=== PATIENT | male | born 1990 | race Caucasian/White ===

== ENCOUNTER 2023-10-13 14:28 | Inpatient (IN) ==
[2023-10-13 15:06] LABS: Appearance Urine Clear (Clear); Bilirubin Urine Negative (Negative); Blood Urine Negative (Negative); Color Urine Yellow; Glucose Urine UA Negative (Negative); Ketones Urine Negative (Negative); Leukocyte Esterase Urine Negative (Negative); Nitrite Urine Negative (Negative); Protein Urine Negative (Negative); Specific Gravity Urine 1.009 (1.000-1.030); Urobilinogen Urine Negative (Negative)
[2023-10-13 15:11] LABS: Basophils # (auto) 0.03 K/uL (0.00-0.20); Basophils % (auto) 0.4 %; Eosinophils # (auto) 0.05 K/uL (0.00-0.50); Eosinophils % (auto) 0.7 %; Hematocrit (blood only) 41.9 % (42.0-52.0); Hemoglobin 14.2 g/dl (14.0-18.0); Immature Granulocytes # (auto) 0.02 K/uL (0.01-0.20); Immature Granulocytes % (auto) 0.3 %; Lymphocytes # (auto) 1.19 K/uL (1.20-3.40); Lymphocytes % (auto) 17.6 %; Mean Corpuscular Hemoglobin 27.8 pg (25.0-34.0); Mean Corpuscular Hgb Conc 33.9 g/dL (32.0-36.0); Mean Corpuscular Volume 82.2 fL (80.0-100.0); Mean Platelet Volume 9.9 fL (9.4-12.4); Monocytes # (auto) 0.36 K/uL (0.11-0.59); Monocytes % (auto) 5.3 %; Neutrophils # (auto) 5.12 K/uL (1.40-6.50); Neutrophils % (auto) 75.7 %; Platelet Count 209 K/uL (130-400); RDW Standard Deviation 35.9 fL (36.4-46.3); White Blood Count 6.77 K/ul (4.8-10.8)
--- NOTE | 2023-10-13 15:15 | Emergency Department Note ---
Impression & Plan Depression with suicidal ideation ADMIT ED Provider Note HPI: History obtained from patient. The patient is a 33-year-old gentleman with stated history of anxiety/depression, presents emergency department chief complaint of suicidal thoughts. 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 Patient states that he plans to stop hotel and overdose on medications but instead decided to come to the hospital to be evaluated for inpatient psychiatric care. Patient states that he did this once back in May and drove to [facility] and was admitted for inpatient psychiatric care at the [facility]. On arrival here to the ED the patient is calm and cooperative, he appears to be in no acute distress, he is able to give me a coherent history, he denies any recent alcohol or drug use. Patient states he is having active suicidal thoughts with a plan to overdose on medications. ROS: - Per HPI Differential Diagnosis: Anxiety/depression, suicidal thoughts, psychosis, amongst other potential pathologies. *Outpatient medications and allergy history reviewed. PE: General: Alert HEENT: Normocephalic, trachea midline Eyes: Extraocular eye movement is intact, no scleral erythema Pulmonary: Clear to auscultation bilaterally, no wheezing Cardio: Regular rate and rhythm GI: Abdomen is soft to palpation : No suprapubic tenderness MSK: No evidence of trauma or malformation of the extremities, no edema Skin: No evidence of rash Neuro: Alert, no focal deficits Psychiatric: Cooperative Medical Decision Making: Patient appears well on my assessment. Lab work shows no leukocytosis, hemoglobin is normal, platelet count is normal, CMP does not show any critical findings. Urine drug screen is negative, COVID testing is negative. Patient was medically cleared for case management assessment/psychiatric placement. Patient is currently voluntary under 201. Patient was assessed by 3 S. for inpatient psychiatric care and accepted for suicidal thoughts with a plan. Patient was transferred to the behavioral health unit in stable condition for further care. Consultants/Discussions held with other healthcare providers: -Case Management, Miley Melchor Disposition discussion held by myself with: -Patient Diagnosis: 1. Suicidal thoughts, acute, with plan 2. History of anxiety/depression Disposition: Admission Jim Lopez DO Emergency Medicine Past Med/Surg History Social History Smoking Status: Never smoker Preferred Language: Cymraes Feels Safe at Home: Yes Gender Identity: Male Allergies Allergies Allergy/AdvReac Type Severity Reaction Status Date / Time peanut Allergy Anaphylaxis Verified 10/13/23 16:08 tree nut Allergy Hives Verified 10/13/23 16:09 Home Meds Home Medications Medication Instructions Recorded Confirmed aripiprazole 5 mg tablet (Abilify) 5 mg PO HS 10/13/23 10/13/23 escitalopram oxalate 10 mg tablet 10 mg PO QPM 10/13/23 10/13/23 (Lexapro) guanfacine 1 mg tablet 1 mg PO HS 10/13/23 10/13/23 Results & Data (ED) Vital Signs Vital Signs - 24 hr 10/13/23 14:35 10/13/23 17:00 10/13/23 19:00 Temperature 37.0 C 36.3 C L Temperature Source Temporal Artery Scan Oral Pulse Rate 103 H Pulse Rate [Left Finger] 88 77 Pulse Rhythm [Left Finger] Regular Pulse Strength [Left Finger] Normal Respiratory Rate 19 20 19 Respiratory Effort / Characteristics Non-Labored Spontaneous Non-Labored Spontaneous Non-Labored Respiratory Depth Normal Normal Normal Respiratory Pattern Regular Regular Blood Pressure 144/90 H Blood Pressure [Left Arm] 137/72 146/85 H Blood Pressure Mean 108 Blood Pressure Mean [Left Arm] 93 105 Pulse Oximetry 97 98 98 Oxygen Delivery Method Room Air Room Air Sepsis Recent Fever Within 48 Hours No Sepsis New/Unexplained Change in Mental Status No Sepsis Action Taken by Nursing No Action Required 10/13/23 21:00 Temperature 36.3 C L Temperature Source Oral Pulse Rate Pulse Rate [Left Finger] 72 Pulse Rhythm [Left Finger] Pulse Strength [Left Finger] Respiratory Rate 18 Respiratory Effort / Characteristics Non-Labored Respiratory Depth Normal Respiratory Pattern Regular Blood Pressure Blood Pressure [Left Arm] 147/86 H Blood Pressure Mean Blood Pressure Mean [Left Arm] 106 Pulse Oximetry 98 Oxygen Delivery Method Room Air Sepsis Recent Fever Within 48 Hours Sepsis New/Unexplained Change in Mental Status Sepsis Action Taken by Nursing Laboratory Data 10/13/23 14:52 10/13/23 14:52 Lab Results 10/13/23 10/13/23 10/13/23 Range/Units 14:52 14:55 19:25 WBC 6.77 (4.8-10.8) K/ul RBC 5.10 (4.70-6.10) M/uL Hgb 14.2 (14.0-18.0) g/dl Hct 41.9 L (42.0-52.0) % MCV 82.2 (80.0-100.0) fL MCH 27.8 (25.0-34.0) pg MCHC 33.9 (32.0-36.0) g/dL RDW Std Deviation 35.9 L (36.4-46.3) fL RDW Coeff of Kylee 12.0 (11.5-14.5) % Plt Count 209 (130-400) K/uL MPV 9.9 (9.4-12.4) fL Immature Gran % (Auto) 0.3 % Neut % (Auto) 75.7 % Lymph % (Auto) 17.6 % Motley % (Auto) 5.3 % Eos % (Auto) 0.7 % Baso % (Auto) 0.4 % Neut # (Auto) 5.12 (1.40-6.50) K/uL Lymph # (Auto) 1.19 L (1.20-3.40) K/uL Motley # (Auto) 0.36 (0.11-0.59) K/uL Eos # (Auto) 0.05 (0.00-0.50) K/uL Baso # (Auto) 0.03 (0.00-0.20) K/uL Immature Gran # (Auto) 0.02 (0.01-0.20) K/uL Sodium 141 (136-145) mmol/L Potassium 3.7 (3.5-5.1) mmol/L Chloride 106 (98-107) mmol/L Carbon Dioxide 27 (21-32) mmol/L Anion Gap 8 (3-11) BUN 12 (6-23) mg/dl Creatinine 0.87 (0.6-1.4) mg/dl Est Cr Clr Drug Dosing 131.1 ml/min Est GFR ( Amer) 131.4 ml/min Est GFR (Non-Af Amer) 113.4 ml/min BUN/Creatinine Ratio 13.8 (10-20) Glucose 130 H (70-99(Fasting)) mg/dl Calcium 9.6 (8.6-10.3) mg/dl Total Bilirubin 0.8 (0.2-1.0) mg/dl AST 24 (13-39) U/L ALT 37 (7-52) U/L Alkaline Phosphatase 70 (34-104) U/L Total Protein 7.2 (6.0-8.3) gm/dl Albumin 4.6 (3.4-5.0) gm/dl Globulin 2.6 (2.5-4.0) gm/dl Albumin/Globulin Ratio 1.8 (0.9-2) TSH 1.669 (0.300-4.500) uIu/ml Urine Color Yellow Urine Appearance Clear (Clear) Urine pH 6.0 (4.5-7.5) Ur Specific [place] 1.009 (1.000-1.030) Urine Protein Negative (Negative) Urine Glucose (UA) Negative (Negative) Urine Ketones Negative (Negative) Urine Blood Negative (Negative) Urine Nitrite Negative (Negative) Urine Bilirubin Negative (Negative) Urine Urobilinogen Negative (Negative) Ur Leukocyte Esterase Negative (Negative) Salicylates < 3.0 L (3.0-30) mg/dl Urine Opiates Screen Neg (Neg) Ur Methadone, Qual Neg (Neg) Acetaminophen < 3 L (10-30) ug/ml Urine Barbiturates Neg (Neg) Ur Phencyclidine (PCP) Neg (Neg) U Amphetamin/Meth Scrn Neg (Neg) MDMA (Ecstasy) Screen Neg (Neg) U Benzodiazepines Scrn Neg (Neg) Ur Cocaine Metabolite Neg (Neg) U Marijuana (THC) Screen Neg (Neg) Ethyl Alcohol mg/dL < 10.0 (<10.0) mg/dl SARS-CoV-2, RNA, NAAT NEGATIVE (NEGATIVE) Discharge Plan Visit Data Chief Complaint: Mental Health Evaluation Stated Complaint: [facility] ED Provider: Jim Lopez Discharge Problem: Depression with suicidal ideation Patient Disposition: Admitted As Inpatient Prescriptions Prescriptions: No Action guanfacine 1 mg Tablet 1 mg PO HS escitalopram oxalate [Lexapro] 10 mg Tablet 10 mg PO QPM aripiprazole [Abilify] 5 mg Tablet 5 mg PO HS
[2023-10-13 15:42] LABS: Albumin Level 4.6 gm/dl (3.4-5.0); Bilirubin,Total 0.8 mg/dl (0.2-1.0); Calcium 9.6 mg/dl (8.6-10.3); Potassium 3.7 mmol/L (3.5-5.1)
[2023-10-13 15:45] LABS: Acetaminophen < 3 ug/ml (10-30); Salicylate < 3.0 mg/dl (3.0-30)
[2023-10-13 15:48] LABS: Albumin Globulin Ratio 1.8 (0.9-2); BUN Creatinine Ratio 13.8 (10-20); Creatinine Clr Calc Pharmacy 131.1 ml/min; Est GFR (African American) 131.4 ml/min; Est GFR (Non-African American) 113.4 ml/min; Globulin 2.6 gm/dl (2.5-4.0); Total Protein 7.2 gm/dl (6.0-8.3)
[2023-10-13 15:49] LABS: Thyroid Stimulating Hormone 1.669 uIu/ml (0.300-4.500)
[2023-10-13 16:01] LABS: Amphetamines+Metham, Urine Neg (Neg); Barbiturates, Urine Neg (Neg); Benzodiazepine, Urine Neg (Neg); Cocaine, Urine Neg (Neg); MDMA (Ecstacy), Urine Neg (Neg); Marijuana, Urine Neg (Neg); Methadone, Urine Neg (Neg); Opiate, Urine Neg (Neg); Phencyclidine, Urine Neg (Neg)
[2023-10-13] MEDS ORDERED: ALUMINUM/MAGNESIUM SUSP 30 ML UDC PO PRN (21:31)
[2023-10-13] MEDS ORDERED: MAGNESIUM HYDROXIDE SUSP 30 ML UDC PO PRN (21:31)
[2023-10-13] MEDS ORDERED: ACETAMINOPHEN 325 MG TAB PO PRN (21:31)
[2023-10-13] MEDS ORDERED: BISMUTH SUBSALICYLATE LIQD 236 ML PO PRN (21:31)
[2023-10-13] MEDS ORDERED: hydrOXYzine HCl 25 MG TAB PO PRN ×2 (21:31)
[2023-10-13] MEDS ORDERED: SODIUM CHLORIDE 0.65% NA SOLN 45 ML (OCEAN) PRN (21:31)
[2023-10-13] MEDS: ARIPiprazole 5 MG TAB PO SCH (22:28)
[2023-10-13] MEDS: guanFACINE HCL 1 MG TAB PO SCH (22:28)
[2023-10-13] MEDS: ESCITALOPRAM OXALATE 10 MG TAB PO SCH (22:29)
[2023-10-14] MEDS: DULoxetine HCL 30 MG CAP PO SCH (10:02)
--- NOTE | 2023-10-14 11:40 | Psychiatric Consultation ---
Date of Consultation October 14, 2023 Psych History Identifying Data Chris is a 33-year-old single male from [place]. He was admitted to our unit via the emergency room on October 12. He had left home to start a new job but had a plan to go to a hotel and overdose on all of his medications to end his life. He got on the road and just drove for several hours and eventually ended up in our emergency room for help. Chief Complaint "I left home with the intention to kill myself." History of Present Illness Today I met with the patient, received nursing report, and reviewed the chart. We also had a multidisciplinary treatment team meeting to discuss his care. Chris lives in [place] with his parents in a house. 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 However, he started to have worsening anxiety and fear as well as paranoia connected to this. He has a history of chronic suicidal ideation but it became much worse. He tells me that he feels like he has had too many failures. 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 He often will have internal dialogue such as saying things like "you cannot do that" or "you are too broken." He is also had much worsening hopelessness lately. He does not want to be a disappointment to others. However, his parents were worried about him starting this new job too soon. He denies any particular triggers that led to him wanting to end his life. His plan was to leave the house and, instead of going to the new job, driving, and checking himself into a hotel, and overdosing on all of his medications. He even left his cell phone at home so he could not be traced. He says that he had been prescribed multiple antihypertensive medications by his outpatient PCP and had been hoarding them. He cannot really identify any major stressors going on other than the new job. He is not in a relationship. He has no children. He has no legal issues. He has no major medical issues. He attends a advent, but he is not really involved in any other organized activities. He is close with his mother and can open up to her about some of his problems, but he tries not to upset her because she is pretty anxious. Recently had transition from fluoxetine to escitalopram about 1-1/2 months ago, but he does not feel that it really helped. Sleep is poor with occasional initial insomnia due to his anxiety. No nightmares. Appetites been "fine." He describes his mood as anxious and fearful. He has anhedonia. Energy has been poor. Concentration has been a bit better since he started [employer]. He says he can read better now. He does have guilt and hopelessness. He denies homicidal thoughts. He admits to having suicidal ideation. Yesterday it was at 9 out of 10, where 10 is the worst it could ever be. This morning he says his suicidal thoughts are at 6 out of 10. He denies any self-harm. He has a history of a severe suicide attempt about 14 years ago when he was a freshman in college when he overdosed on Benadryl. He denies any history of trauma or abuse. He is occasionally hearing his name called and often will feel that people are talking about him. When asked about hallucinations he was somewhat vague and it sounds more like he is having obsessive thoughts than auditory hallucinations. He denies any visual hallucinations. He often will do things like, song or repeat things in his head to try to distract himself. He denies ideas of reference. He denies thought insertion or thought removal but sometimes he wonders if people can hear what he is thinking although he quickly can correct himself and tell himself that it is "irrational" to feel that way. He denies any substance use although he has a history of heavy alcohol use about 9 years ago where he would binge. When asked about a history of izabela he describes what might be hypomanic episodes where he will have increased energy, racing thoughts, can get a lot done, can sometimes get a little bit disinhibited, and have surges of self- confidence. These episodes could last up to a week but not usually that long. He has never been hospitalized for izabela. Past Psychiatric History Previous Psych History: He says that he is diagnosed with depression and anxiety. Current Psychiatric Diagnosis: Depression, Anxiety, reports possible bipolar and schizoaffective Outpatient Services: He gets all of his outpatient services through [facility] in [place]. He does zoom meetings with his psychiatrist, Vianey Vazquez. He has a therapist, CUATE Perez. Previous Psych Admissions: Patient has had 3 prior psychiatric hospitalizations. He was at [facility] in May 2023. He was at [facility] in April 2022. He was at a hospital called [facility] in [place], [place] in 2009. History of Previous Suicide Attempt: Yes Past Medication Trials: An approximate chronological order, he has been on Paxil, lamotrigine, Zyprexa, Celexa, Vyvanse, Adderall, Prozac, Abilify, Lexapro, gabapentin, Ativan, and propranolol. Allergies Allergy/AdvReac Type Severity Reaction Status Date / Time peanut Allergy Anaphylaxis Verified 10/13/23 16:08 tree nut Allergy Hives Verified 10/13/23 16:09 Home Medications Medication Instructions Recorded Confirmed Type aripiprazole 5 mg tablet (Abilify) 5 mg PO HS 10/13/23 10/13/23 History epinephrine 0.3 mg/0.3 mL 10/13/23 History injection, auto-injector escitalopram oxalate 10 mg tablet 10 mg PO QPM 10/13/23 10/13/23 History (Lexapro) guanfacine 1 mg tablet 1 mg PO HS 10/13/23 10/13/23 History Patient History Social History Smoking Status: Never smoker Preferred Language: Slovenian Communication Ability: Effective Backwinder Required: No Beliefs That Will Affect Care: None Feels Safe at Home: Yes Gender Identity: Male Assistive Devices: None Physical Exam Vital Signs (Past 24 Hours): Last Vital Signs Temp 36.3 C L 10/14/23 06:26 Pulse 78 10/14/23 06:26 Resp 18 10/14/23 06:26 BP 119/81 10/14/23 06:26 Pulse Ox 98 10/14/23 06:26 O2 Del Method Room Air 10/14/23 06:26 Results & Data (PSY) Medications Administered Aripiprazole (Aripiprazole 5 Mg Tab) 5 mg PO HS SHERLEY Stop: 11/12/23 22:14 Last Admin: 10/13/23 22:28 Dose: 5 mg Documented By: PHONG Duloxetine HCl (Duloxetine Hcl 30 Mg Cap) 30 mg PO QAM SHERLEY Stop: 11/13/23 09:14 Last Admin: 10/14/23 10:02 Dose: 30 mg Documented By: MAYANK Coding
--- NOTE | 2023-10-14 12:01 | History & Physical ---
Date of Service October 14, 2023 Impression / Recommendations Impression This is a gentleman that had a long history of problems with depression and anxiety going back at least since he was a teenager. He also has a strong family history of depression and anxiety, and possible bipolar disorder. He has had a lot of difficulty with coping and functioning. He had to quit his job and so he is very down on himself about that. He feels an adequate around other people and sometimes will get to the point of paranoia thinking that people are talking about him. With this new job supposed to start yesterday, he hit a breaking point and became acutely suicidal. He had a distinct well thought out plan of ending his life. We know this because he took his medications with him when he was going to work as well as leaving his cell phone at home on purpose. He is also had difficulty functioning independently and has to live with his parents and I think that brings him down as well. He also does not have much of a social support system other than his parents. I think this gentleman is an acute danger of suicide and I am very glad that he came in for help. Today I spent about 85 minutes on the case. This included meeting with the patient, reviewing the chart, nursing report, multidisciplinary treatment team meeting, orders, and documentation. (1) Major depressive disorder, recurrent severe without psychotic features: (2) Bipolar 2 disorder, major depressive episode: (3) Generalized anxiety disorder: (4) Alcohol use disorder in remission: Plan 1. Patient was admitted to our unit for safety, further evaluation, and t reatment. We have him on suicide precautions with every 15 minute observations for safety. 2. I encouraged the patient to take part in our therapeutic milieu, attend groups and activities, maintain good hygiene, and try not to isolate. 3. We are going to continue his Intuniv 1 mg nightly as well as his Abilify 5 mg nightly. We might consider raising the Abilify to help with paranoia if that continues to persist. 4. We are going to discontinue the Lexapro and start him on duloxetine 30 mg daily with a plan to get to 60 mg daily over the next few days. I reviewed the uses, side effects, and time course of this medication and he gave informed consent. 5. I reached out to his physicians medical assistant ob gyn at [facility] and I am awaiting a phone call back to discuss the case. I do have some concerns that he may have bipolar disorder type II in which case we might want to adjust medications although Abilify is a reasonable treatment. 6. The administrator social welfare will try to set up a family meeting in the next few days and also arrange for transportation home. Right now, I do not feel comfortable having him drive himself back to [place]. 7. Disposition will likely be back home with outpatient medication management and counseling to continue. He also might be a good candidate for intensive outpatient treatment. We will hold off on work for now. Suicide Risk Level Suicide Risk Level: High-Moderate (q15 min suicide checks) Protective Factors Assessment Employed: No Psychiatric History Identifying Data Chris is a 33-year-old single male from [place]. He was admitted to our unit via the emergency room on October 12. He had left home to start a new job but had a plan to go to a hotel and overdose on all of his medications to end his life. He got on the road and just drove for several hours and eventually ended up in our emergency room for help. Chief Complaint "I left home with the intention to kill myself." History of Present Illness Today I met with the patient, received nursing report, and reviewed the chart. We also had a multidisciplinary treatment team meeting to discuss his care. Chris lives in [place] with his parents in a house. 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 However, he started to have worsening anxiety and fear as well as paranoia connected to this. He has a history of chronic suicidal ideation but it became much worse. He tells me that he feels like he has had too many failures. 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 He often will have internal dialogue such as saying things like "you cannot do that" or "you are too broken." He is also had much worsening hopelessness lately. He does not want to be a disappointment to others. However, his parents were worried about him starting this new job too soon. He denies any particular triggers that led to him wanting to end his life. His plan was to leave the house and, instead of going to the new job, driving, and checking himself into a hotel, and overdosing on all of his medications. He even left his cell phone at home so he could not be traced. He says that he had been prescribed multiple antihypertensive medications by his outpatient PCP and had been hoarding them. He cannot really identify any major stressors going on other than the new job. He is not in a relationship. He has no children. He has no legal issues. He has no major medical issues. He attends a [employer], but he is not really involved in any other organized activities. He is close with his mother and can open up to her about some of his problems, but he tries not to upset her because she is pretty anxious. Recently had transition from fluoxetine to escitalopram about 1-1/2 months ago, but he does not feel that it really helped. Sleep is poor with occasional initial insomnia due to his anxiety. No nightmares. Appetites been "fine." He describes his mood as anxious and fearful. He has anhedonia. Energy has been poor. Concentration has been a bit better since he started Intuniv. He says he can read better now. He does have guilt and hopelessness. He denies homicidal thoughts. He admits to having suicidal ideation. Yesterday it was at 9 out of 10, where 10 is the worst it could ever be. This morning he says his suicidal thoughts are at 6 out of 10. He denies any self-harm. He has a history of a severe suicide attempt about 14 years ago when he was a freshman in college when he overdosed on Benadryl. He denies any history of trauma or abuse. He is occasionally hearing his name called and often will feel that people are talking about him. When asked about hallucinations he was somewhat vague and it sounds more like he is having obsessive thoughts than auditory hallucinations. He denies any visual hallucinations. He often will do things like, song or repeat things in his head to try to distract himself. He denies ideas of reference. He denies thought insertion or thought removal but sometimes he wonders if people can hear what he is thinking although he quickly can correct himself and tell himself that it is "irrational" to feel that way. He denies any substance use although he has a history of heavy alcohol use about 9 years ago where he would binge. When asked about a history of izabela he describes what might be hypomanic episodes where he will have increased energy, racing thoughts, can get a lot done, can sometimes get a little bit disinhibited, and have surges of self- confidence. These episodes could last up to a week but not usually that long. He has never been hospitalized for izabela. Past Psychiatric History Previous Psych History: He says that he is diagnosed with depression and anxiety. Current Psychiatric Diagnosis: Depression, Anxiety, reports possible bipolar and schizoaffective Outpatient Services: He gets all of his outpatient services through [facility] in [place]. He does zoom meetings with his psychiatric PA, Vianey Vazquez, for med management. He has a therapist, CUATE Perez. Previous Psych Admissions: In approximate chronological order, he has been on Paxil, lamotrigine, Zyprexa, Celexa, Vyvanse, Adderall, Prozac, Abilify, Lexapro, gabapentin, Ativan, and propranolol. History of Previous Suicide Attempt: Yes Past Medication Trials: Past medical history: Patient has a history of eczema. He denies any other chronic illnesses. He was hospitalized medically once after a severe overdose about 14 years ago. 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 No history of any seizures. No history of head trauma with loss of consciousness. Past Head Trauma/Neuro History Patient has a history of eczema. He has no other chronic medical issues. He was hospitalized medically once about 14 years ago after an overdose of Benadryl. He has had surgery for correction of undescended testes. No history of seizures. No head trauma with loss of consciousness. Allergies Allergy/AdvReac Type Severity Reaction Status Date / Time peanut Allergy Anaphylaxis Verified 10/13/23 16:08 tree nut Allergy Hives Verified 10/13/23 16:09 Home Medications Medication Instructions Recorded Confirmed Type aripiprazole 5 mg tablet (Abilify) 5 mg PO HS 10/13/23 10/13/23 History epinephrine 0.3 mg/0.3 mL 10/13/23 History injection, auto-injector escitalopram oxalate 10 mg tablet 10 mg PO QPM 10/13/23 10/13/23 History (Lexapro) guanfacine 1 mg tablet 1 mg PO HS 10/13/23 10/13/23 History Family History Family History of: Doesn't Know Family Mental Health History Comment: Paternal grandmother has a history of depression and likely bipolar disorder. Nobody in the family is ever ended their life by suicide. Mother has a history of anxiety. Maternal grandfather has a history of alcoholism. There is a lot of alcoholism on the paternal side of the family. Paternal aunt may have had undiagnosed bipolar disorder. Alcohol History Hx of Alcohol Use Over the Past 12 Months: No (Quit drinking 10 years ago.) AUDIT Total Score: 0 Smoking Use Have You Smoked or Used Tobacco Products in the Last 30 Days: No Smoking Status: Never smoker Substance History Hx of Prescription Med Misuse Over the Past 12 Months: No Hx of Over the Counter Med Misuse Over the Past 12 Months: No Hx of Inhalent Misuse Over the Past 12 Months: No Hx of Organic Substance Use Over the Past 12 Months: No Hx of Illegal Substances/Street Drug Use Over Past 12 Months: No Problems as a Result of Past Substance Use: None Identified Personal History Living Arrangements: Home Beliefs That Will Affect Care: None Additional Comments: The patient lives in [place] in a house with his parents. He has a bachelor's in physics. He has an associates in nursing and is currently working as an RN. He has never been in the . He is never been and has no children. His father works as a psychologist. Mother is a retired machinist first class. Patient is not in a relationship. He has no legal issues. Patient History Social History Smoking Status: Never smoker Preferred Language: Thai Communication Ability: Effective Drum Cleaner Required: No Beliefs That Will Affect Care: None Feels Safe at Home: Yes Gender Identity: Male Assistive Devices: None Review of Systems Review of Systems: Patient denied any cold or flu. No headache or fever. No problems with eyes, ears, nose, teeth, or swallowing. No pain or swelling in their neck. No wheezing, coughing, or shortness of breath. No chest pain, racing heartbeat, or irregular heart rate. No diarrhea, upset stomach, or constipation. No dysuria, problems emptying their bladder, initiating a urine stream, or hematuria. No skin lesions. No concerns about an STD. No muscle weakness, numbness, tingling, or tremors. No broken bones. No problems with their joints. No problems with their feet. No bleeding problems. Physical Exam Psychiatric: Patient was alert and oriented x 3. He was clean but slightly disheveled. Eye contact was good. Speech was normal. Mood was described as "anxious and fearful." Affect was somewhat restricted. Thought process was logical and goal-directed. There was no evidence of any hallucinations or delusions. Patient reported suicidal ideation with a plan as I described above. He denied any homicidal thoughts. Memory was good; he knew his date of , the president of [facility], and the capital of [place]. Concentration was good; he could spell the word world backwards easily. No abnormal movements were seen. Gait was normal. Insight and judgment are impaired. Vital Signs (Past 24 Hours): Last Vital Signs Temp 36.3 C L 10/14/23 06:26 Pulse 78 10/14/23 06:26 Resp 18 10/14/23 06:26 BP 119/81 10/14/23 06:26 Pulse Ox 98 10/14/23 06:26 O2 Del Method Room Air 10/14/23 06:26 Exam Statement: A physical exam was performed in the emergency department yesterday afternoon by Dr. Jim Lopez. Everything in the physical exam notes were completely normal. Results & Data ([facility]) Laboratory Results Laboratory Results - last 24 hr 10/13/23 10/13/23 10/13/23 14:52 14:55 19:25 WBC 6.77 RBC 5.10 Hgb 14.2 Hct 41.9 L MCV 82.2 MCH 27.8 MCHC 33.9 RDW Std Deviation 35.9 L RDW Coeff of Kylee 12.0 Plt Count 209 MPV 9.9 Immature Gran % (Auto) 0.3 Neut % (Auto) 75.7 Lymph % (Auto) 17.6 Bennett % (Auto) 5.3 Eos % (Auto) 0.7 Baso % (Auto) 0.4 Neut # (Auto) 5.12 Lymph # (Auto) 1.19 L Bennett # (Auto) 0.36 Eos # (Auto) 0.05 Baso # (Auto) 0.03 Immature Gran # (Auto) 0.02 Sodium 141 Potassium 3.7 Chloride 106 Carbon Dioxide 27 Anion Gap 8 BUN 12 Creatinine 0.87 Est Cr Clr Drug Dosing 131.1 Est GFR ( Amer) 131.4 Est GFR (Non-Af Amer) 113.4 BUN/Creatinine Ratio 13.8 Glucose 130 H Calcium 9.6 Total Bilirubin 0.8 AST 24 ALT 37 Alkaline Phosphatase 70 Total Protein 7.2 Albumin 4.6 Globulin 2.6 Albumin/Globulin Ratio 1.8 TSH 1.669 Urine Color Yellow Urine Appearance Clear Urine pH 6.0 Ur Specific [place] 1.009 Urine Protein Negative Urine Glucose (UA) Negative Urine Ketones Negative Urine Blood Negative Urine Nitrite Negative Urine Bilirubin Negative Urine Urobilinogen Negative Ur Leukocyte Esterase Negative Salicylates < 3.0 L Urine Opiates Screen Neg Ur Methadone, Qual Neg Acetaminophen < 3 L Urine Barbiturates Neg Ur Phencyclidine (PCP) Neg U Amphetamin/Meth Scrn Neg MDMA (Ecstasy) Screen Neg U Benzodiazepines Scrn Neg Ur Cocaine Metabolite Neg U Marijuana (THC) Screen Neg Ethyl Alcohol mg/dL < 10.0 SARS-CoV-2, RNA, NAAT NEGATIVE Current Inpatient Medications Current Inpatient Medications: Current Inpatient Medications Acetaminophen (Acetaminophen 325 Mg Tab) 650 mg PO Q4H PRN PRN Reason: Headache or Minor Fever Stop: 11/12/23 21:30 Al Hydrox/Mg Hydrox/Simethicone (Aluminum/Magnesium Susp 30 Ml Udc) 30 ml PO Q4H PRN PRN Reason: GI Upset Stop: 11/12/23 21:30 Aripiprazole (Aripiprazole 5 Mg Tab) 5 mg PO HS SHERLEY Stop: 11/12/23 22:14 Last Admin: 10/13/23 22:28 Dose: 5 mg Bismuth Subsalicylate (Bismuth Subsalicylate Liqd 236 Ml) 15 ml PO PRN PRN PRN Reason: Loose Stool Stop: 11/12/23 21:30 Duloxetine HCl (Duloxetine Hcl 30 Mg Cap) 30 mg PO QAM SHERLEY Stop: 11/13/23 09:14 Last Admin: 10/14/23 10:02 Dose: 30 mg Guanfacine HCl (Guanfacine Hcl 1 Mg Ertab) 1 mg PO HS SHERLEY Stop: 11/13/23 21:59 Hydroxyzine HCl (Hydroxyzine Hcl 25 Mg Tab) 50 mg PO HSZ PRN PRN Reason: Insomnia Stop: 11/12/23 21:30 Hydroxyzine HCl (Hydroxyzine Hcl 25 Mg Tab) 25 mg PO Q4H PRN PRN Reason: Anxiety Stop: 11/12/23 21:30 Magnesium Hydroxide (Magnesium Hydroxide Susp 30 Ml Udc) 30 ml PO DAILY PRN PRN Reason: Constipation Stop: 11/12/23 21:30 Sodium Chloride (Sodium Chloride 0.65% Na Soln 45 Ml (Citrus)) 1 - 2 sprays NA PRN PRN PRN Reason: Nasal Dryness/Congestion Stop: 11/12/23 21:30
--- NOTE | 2023-10-14 14:21 | Communication Note ---
Date of Service: October 14, 2023 I spoke with the physicians dietetic assistant that works with this patient for his psychiatric medication management at 2:20 PM. I relayed my concerns about poss ible bipolar disorder type II versus major depression. We both agree that this could be bipolar type II. We also both agree that he has generalized anxiety disorder. I discussed the medication adjustments we made and talked about possibly adding some Seroquel later on. She was in support of everything that we discussed and understands that we may or may not start Seroquel before he leaves the hospital. We will send a copy of the discharge summary and psychiatric evaluation at discharge.
[2023-10-14] MEDS ORDERED: ONDANSETRON 4 MG OD TAB PO PRN (14:58)
--- NOTE | 2023-10-15 15:21 | Psychiatric Progress Note ---
Date of Service October 15, 2023 Impression / Recommendations Impression 10/14/2023: This is a gentleman that had a long history of problems with depression and anxiety going back at least since he was a teenager. He also has a strong family history of depression and anxiety, and possible bipolar disorder. He has had a lot of difficulty with coping and functioning. He had to quit his job and so he is very down on himself about that. He feels an adequate around other people and sometimes will get to the point of paranoia thinking that people are talking about him. With this new job supposed to start yesterday, he hit a breaking point and became acutely suicidal. He had a dist inct well thought out plan of ending his life. We know this because he took his medications with him when he was going to work as well as leaving his cell phone at home on purpose. He is also had difficulty functioning independently and has to live with his parents and I think that brings him down as well. He also does not have much of a social support system other than his parents. I think this gentleman is an acute danger of suicide and I am very glad that he came in for help. 10/15/2023: Patient is settled in well on the unit and is working hard to get better. He seems to be tolerating his medication adjustments. We are observing some of his anxious habits which are congruent with what he told us. I think he is still in acute danger to himself and others and still requires inpatient psychiatric hospitalization. Today I spent about 39 minutes on the case. This included meeting with the patient, reviewing the chart, nursing report, multidisciplinary team meeting, orders, and documentation. (1) Bipolar 2 disorder, major depressive episode: (2) Generalized anxiety disorder: (3) Alcohol use disorder in remission: Plan 1. Patient was admitted to our unit for safety, further evaluation, and treatment. We have him on suicide precautions with every 15 minute observations for safety. 2. I encouraged the patient to take part in our therapeutic milieu, attend groups and activities, maintain good hygiene, and try not to isolate. 3. We are going to continue his Intuniv 1 mg nightly as well as his Abilify 5 mg nightly. We might consider raising the Abilify to help with paranoia if that continues to persist. 4. We are going to discontinue the Lexapro and start him on duloxetine 30 mg daily with a plan to get to 60 mg daily over the next few days. I reviewed the uses, side effects, and time course of this medication and he gave informed consent. 5. I reached out to his physicians assistant auditor at [facility] and I am awaiting a phone call back to discuss the case. I do have some concerns that he may have bipolar disorder type II in which case we might want to adjust medications although Abilify is a reasonable treatment. 6. The case management social worker will try to set up a family meeting in the next few days and also arrange for transportation home. Right now, I do not feel comfortable having him drive himself back to [place]. 7. Disposition will likely be back home with outpatient medication management and counseling to continue. He also might be a good candidate for intensive outpatient treatment. We will hold off on work for now. 10/15/2023: We will continue with our current level of observations and precautions. Today, we decided together to discontinue the Abilify and start some Seroquel and try to titrate towards 300 mg at bedtime. Tonight we will started at 100 mg. Hopefully, this will help with what we think is bipolar disorder type II. I also ordered a fasting lipid profile baseline. I reviewed the uses, side effects, and time course and he gave informed consent. I asked him to continue to participate in the therapeutic milieu and help distract himself. Suicide Risk Level Suicide Risk Level: High-Moderate (q15 min suicide checks) Risk Factors Assessment Do You Have Access To A Gun?: No Protective Factors Assessment Employed: No Interval History Identifying Information Chris is a 33-year-old single male from [place]. He was admitted to our unit via the emergency room on October 12. He had left home to start a new job but had a plan to go to a hotel and overdose on all of his medications to end his life. He got on the road and just drove for several hours and eventually ended up in our emergency room for help. Chief Complaint "I left home with the intention to kill myself." Review of Systems Sleep Information Total Hours of Sleep: 7 Meal Information Percent Meal Consumed - Breakfast: 100 Percent Meal Consumed - Lunch: 100 Percent Meal Consumed - Dinner: 100 Subjective Subjective Today I met with the patient, received nursing report, and reviewed his chart. We also had a multidisciplinary team meeting to discuss his care. Chris is in our hospital due to concerns of suicidal ideation and severe anxiety. Nurses report that he has been out of his room. He is not having any nausea associated with the new Cymbalta. He has not had a lot of spontaneous interaction with his peers and sometimes looks a bit suspicious. However, he has been appropriate. He is going to groups and participating there. He described his mood to the staff is 6 out of 10 and feels "hopeful." He has been walking and reading to help pass the time. He slept through the night. When I met with him today, he said that he spoke with his parents and they were very concerned about him and worried. He felt like he had overwhelmed to them because his mother has her own anxiety issues. He says that they tend to feed off of each other. Lately, he says he is not feeling that depressed. He has been reading a book to help pass the time. He denied any nausea with me. We discussed the conversation I had with his outpatient psychiatric provider yesterday. Physical Exam Psychiatric Patient was alert and cooperative. Eye contact was good. He was clean and well-groomed. Speech was normal. Mood was described as "anxious." Affect was still somewhat restricted and slightly anxious. Thought process was logical and goal-directed. There was no evidence of any hallucinations or delusions. Patient reported milder suicidal ideation and no homicidal thoughts. Memory and concentration were good. No abnormal movements were seen. Gait was normal. Insight and judgment are impaired. Vital Signs (Past 24 Hours) Last Vital Signs Temp 36.5 C 10/15/23 06:34 Pulse 88 10/15/23 06:34 Resp 18 10/15/23 06:34 BP 119/81 10/14/23 06:26 Pulse Ox 96 10/15/23 06:34 O2 Del Method Room Air 10/15/23 06:34 Results & Data ([facility]) Current Inpatient Medications Current Inpatient Medications: Current Inpatient Medications Acetaminophen (Acetaminophen 325 Mg Tab) 650 mg PO Q4H PRN PRN Reason: Headache or Minor Fever Stop: 11/12/23 21:30 Al Hydrox/Mg Hydrox/Simethicone (Aluminum/Magnesium Susp 30 Ml Udc) 30 ml PO Q4H PRN PRN Reason: GI Upset Stop: 11/12/23 21:30 Bismuth Subsalicylate (Bismuth Subsalicylate Liqd 236 Ml) 15 ml PO PRN PRN PRN Reason: Loose Stool Stop: 11/12/23 21:30 Duloxetine HCl (Duloxetine Hcl 30 Mg Cap) 30 mg PO QAM SHERLEY Stop: 11/13/23 09:14 Last Admin: 10/15/23 08:12 Dose: 30 mg Guanfacine HCl (Guanfacine Hcl 1 Mg Ertab) 1 mg PO HS SHERLEY Stop: 11/13/23 21:59 Last Admin: 10/14/23 21:43 Dose: 1 mg Hydroxyzine HCl (Hydroxyzine Hcl 25 Mg Tab) 50 mg PO HSZ PRN PRN Reason: Insomnia Stop: 11/12/23 21:30 Hydroxyzine HCl (Hydroxyzine Hcl 25 Mg Tab) 25 mg PO Q4H PRN PRN Reason: Anxiety Stop: 11/12/23 21:30 Magnesium Hydroxide (Magnesium Hydroxide Susp 30 Ml Udc) 30 ml PO DAILY PRN PRN Reason: Constipation Stop: 11/12/23 21:30 Ondansetron HCl (Ondansetron 4 Mg Od Tab) 4 mg PO Q6H PRN PRN Reason: Nausea Stop: 11/13/23 14:57 Quetiapine Fumarate (Quetiapine Fumarate 100 Mg Tablet) 100 mg PO HS SHERLEY Stop: 11/14/23 21:59 Sodium Chloride (Sodium Chloride 0.65% Na Soln 45 Ml ([place])) 1 - 2 sprays NA PRN PRN PRN Reason: Nasal Dryness/Congestion Stop: 11/12/23 21:30 Mental Health & Subst Abuse Tx Therapist Name of Therapist: Sheree CUELLO Post Discharge Appointments Primary Care Physician Name Of Family Doctor/PCP: In between providers
[2023-10-15] MEDS: QUEtiapine FUMARATE 100 MG TABLET PO SCH (21:42)
[2023-10-16 08:07] LABS: Chol HDL Ratio 4.9 (0-5)
--- NOTE | 2023-10-16 12:59 | Psychiatric Progress Note ---
Date of Service October 16, 2023 Impression / Recommendations Impression 10/14/2023: This is a gentleman that had a long history of problems with depression and anxiety going back at least since he was a teenager. He also has a strong family history of depression and anxiety, and possible bipolar disorder. He has had a lot of difficulty with coping and functioning. He had to quit his job and so he is very down on himself about that. He feels an adequate around other people and sometimes will get to the point of paranoia thinking that people are talking about him. With this new job supposed to start yesterday, he hit a breaking point and became acutely suicidal. He had a dist inct well thought out plan of ending his life. We know this because he took his medications with him when he was going to work as well as leaving his cell phone at home on purpose. He is also had difficulty functioning independently and has to live with his parents and I think that brings him down as well. He also does not have much of a social support system other than his parents. I think this gentleman is an acute danger of suicide and I am very glad that he came in for help. 10/15/2023: Patient is settled in well on the unit and is working hard to get better. He seems to be tolerating his medication adjustments. We are observing some of his anxious habits which are congruent with what he told us. I think he is still in acute danger to himself and others and still requires inpatient psychiatric hospitalization. 10/16/2023: Patient is engaging well on the unit and seems to be showing a little bit of improvement. He is tolerating the Seroquel and other Medication adjustments that we started yesterday. Lipid profile is good at baseline. Today I spent about 37 minutes on the case. This included meeting with the patient, reviewing the chart, nursing report, orders, and documentation. (1) Bipolar 2 disorder, major depressive episode: (2) Generalized anxiety disorder: (3) Alcohol use disorder in remission: Plan 10/14/2023: 1. Patient was admitted to our unit for safety, further evaluation, and treatment. We have him on suicide precautions with every 15 minute observations for safety. 2. I encouraged the patient to take part in our therapeutic milieu, attend groups and activities, maintain good hygiene, and try not to isolate. 3. We are going to continue his Intuniv 1 mg nightly as well as his Abilify 5 mg nightly. We might consider raising the Abilify to help with paranoia if that continues to persist. 4. We are going to discontinue the Lexapro and start him on duloxetine 30 mg daily with a plan to get to 60 mg daily over the next few days. I reviewed the uses, side effects, and time course of this medication and he gave informed consent. 5. I reached out to his physicians activity assistant at [facility] and I am awaiting a phone call back to discuss the case. I do have some concerns that he may have bipolar disorder type II in which case we might want to adjust medications although Abilify is a reasonable treatment. 6. The mental health social worker will try to set up a family meeting in the next few days and also arrange for transportation home. Right now, I do not feel comfortable having him drive himself back to [place]. 7. Disposition will likely be back home with outpatient medication management and counseling to continue. He also might be a good candidate for intensive outpatient treatment. We will hold off on work for now. 10/15/2023: We will continue with our current level of observations and precautions. Today, we decided together to discontinue the Abilify and start some Seroquel and try to titrate towards 300 mg at bedtime. Tonight we will started at 100 mg. Hopefully, this will help with what we think is bipolar disorder type II. I also ordered a fasting lipid profile baseline. I reviewed the uses, side effects, and time course and he gave informed consent. I asked him to continue to participate in the therapeutic milieu and help distract himself. 10/16/2023: We will continue with our current level of observations and precautions. Today I will increase the Seroquel to 200 mg nightly with the eventual goal of 300 mg at bedtime. In a few days, we may also increase the duloxetine. Suicide Risk Level Suicide Risk Level: High-Moderate (q15 min suicide checks) Risk Factors Assessment Do You Have Access To A Gun?: No Protective Factors Assessment Employed: No Interval History Identifying Information Chris is a 33-year-old single male from [place]. He was admitted to our unit via the emergency room on October 12. He had left home to start a new job but had a plan to go to a hotel and overdose on all of his medications to end his life. He got on the road and just drove for several hours and eventually ended up in our emergency room for help. Chief Complaint "I left home with the intention to kill myself." Review of Systems Sleep Information Total Hours of Sleep: 8 Sleep Comments: Pt started Seroquel 100mg at HS Meal Information Percent Meal Consumed - Breakfast: 100 Percent Meal Consumed - Lunch: 100 Percent Meal Consumed - Dinner: 100 Subjective Subjective Today met with the patient, received nursing report, and reviewed his chart. Chris is in our hospital due to concerns of his very severe depression with suicidal ideation and severe anxiety. Staff report that he was snoring quite a bit last night and irritating his roommate. He has been doing okay on the unit. His parents overnighted some clothing and toiletries. Patient's been out of his room and reading books at times. He has minimal interactions with his peers, but today I witnessed him chatting with a peer while they were walking around the unit. He slept well. He tolerated the Seroquel at 200 mg just fine. When I met with the patient, he said that he slept really well with the Seroquel. Appetite has been good. He has been talking with patients. He was a little bit frustrated that his overnight package had not been found but the nurse found it later in the day. He felt a little more comfortable opening up with his parents since they seem a lot calmer at this point. He says he does better one-to-one than in groups, but he is trying his best. He described his mood is "pretty good, tired, and focused on treatment." He says his suicidal thoughts are at a 0-1 out of 10. He denies any self-harm urges or homicidal thoughts. Physical Exam Psychiatric Patient was alert and cooperative. Eye contact was good. He was clean and well-groomed. Speech was normal. Mood was described as "pretty good, tired, and focused on treatment." Affect was a bit brighter and less anxious today. Thought process was logical and goal-directed. There was no evidence of any hallucinations or delusions. Patient reported milder suicidal ideation as I described above and no homicidal thoughts. Memory and concentration were good. No abnormal movements were seen. Gait was normal. Insight and judgment are impaired. Vital Signs (Past 24 Hours) Last Vital Signs Temp 36.6 C 10/16/23 06:48 Pulse 80 10/16/23 06:48 Resp 16 10/16/23 06:48 BP 111/74 10/16/23 06:48 Pulse Ox 97 10/16/23 06:48 O2 Del Method Room Air 10/16/23 06:48 Results & Data ([facility]) Laboratory Results Laboratory Results - last 24 hr 10/16/23 07:26 Triglycerides 142 Cholesterol 178 LDL Cholesterol, Calc 114 VLDL Cholesterol, Calc 28 HDL Cholesterol 36 Cholesterol/HDL Ratio 4.9 Current Inpatient Medications Current Inpatient Medications: Current Inpatient Medications Acetaminophen (Acetaminophen 325 Mg Tab) 650 mg PO Q4H PRN PRN Reason: Headache or Minor Fever Stop: 11/12/23 21:30 Al Hydrox/Mg Hydrox/Simethicone (Aluminum/Magnesium Susp 30 Ml Udc) 30 ml PO Q4H PRN PRN Reason: GI Upset Stop: 11/12/23 21:30 Bismuth Subsalicylate (Bismuth Subsalicylate Liqd 236 Ml) 15 ml PO PRN PRN PRN Reason: Loose Stool Stop: 11/12/23 21:30 Duloxetine HCl (Duloxetine Hcl 30 Mg Cap) 30 mg PO QAM SHERLEY Stop: 11/13/23 09:14 Last Admin: 10/16/23 09:09 Dose: 30 mg Guanfacine HCl (Guanfacine Hcl 1 Mg Ertab) 1 mg PO HS SHERLEY Stop: 11/13/23 21:59 Last Admin: 10/15/23 20:57 Dose: 1 mg Hydroxyzine HCl (Hydroxyzine Hcl 25 Mg Tab) 50 mg PO HSZ PRN PRN Reason: Insomnia Stop: 11/12/23 21:30 Hydroxyzine HCl (Hydroxyzine Hcl 25 Mg Tab) 25 mg PO Q4H PRN PRN Reason: Anxiety Stop: 11/12/23 21:30 Magnesium Hydroxide (Magnesium Hydroxide Susp 30 Ml Udc) 30 ml PO DAILY PRN PRN Reason: Constipation Stop: 11/12/23 21:30 Ondansetron HCl (Ondansetron 4 Mg Od Tab) 4 mg PO Q6H PRN PRN Reason: Nausea Stop: 11/13/23 14:57 Quetiapine Fumarate (Quetiapine Fumarate 100 Mg Tablet) 100 mg PO HS SHERLEY Stop: 11/14/23 21:59 Last Admin: 10/15/23 21:42 Dose: 100 mg Sodium Chloride (Sodium Chloride 0.65% Na Soln 45 Ml ([place])) 1 - 2 sprays NA PRN PRN PRN Reason: Nasal Dryness/Congestion Stop: 11/12/23 21:30 Mental Health & Subst Abuse Tx Therapist Name of Therapist: Sheree CUELLO Post Discharge Appointments Primary Care Physician Name Of Family Doctor/PCP: In between providers
[2023-10-16] MEDS: QUEtiapine FUMARATE 200 MG TAB PO SCH (21:33)
[2023-10-17 10:54] LABS: Estimated Average Glucose 97 mg/dl
--- NOTE | 2023-10-17 12:01 | Psychiatric Progress Note ---
Date of Service October 17, 2023 Impression / Recommendations Impression 10/14/2023: This is a gentleman that had a long history of problems with depression and anxiety going back at least since he was a teenager. He also has a strong family history of depression and anxiety, and possible bipolar disorder. He has had a lot of difficulty with coping and functioning. He had to quit his job and so he is very down on himself about that. He feels an adequate around other people and sometimes will get to the point of paranoia thinking that people are talking about him. With this new job supposed to start yesterday, he hit a breaking point and became acutely suicidal. He had a disti nct well thought out plan of ending his life. We know this because he took his medications with him when he was going to work as well as leaving his cell phone at home on purpose. He is also had difficulty functioning independently and has to live with his parents and I think that brings him down as well. He also does not have much of a social support system other than his parents. I think this gentleman is an acute danger of suicide and I am very glad that he came in for help. 10/15/2023: Patient is settled in well on the unit and is working hard to get better. He seems to be tolerating his medication adjustments. We are observing some of his anxious habits which are congruent with what he told us. I think he is still in acute danger to himself and others and still requires inpatient psychiatric hospitalization. 10/16/2023: Patient is engaging well on the unit and seems to be showing a little bit of improvement. He is tolerating the Seroquel and other Medication adjustments that we started yesterday. Lipid profile is good at baseline. 10/17/2023: We continue to see gradual improvement. He is tolerating the medications pretty well. He still is having some guilt, but he is trying hard to get better. Today I spent about 39 minutes on the case. This included meeting with the patient, reviewing the chart, nursing report, multidisciplinary treatment team meeting, orders, and documentation. (1) Bipolar 2 disorder, major depressive episode: (2) Generalized anxiety disorder: (3) Alcohol use disorder in remission: Plan 10/14/2023: 1. Patient was admitted to our unit for safety, further evaluation, and treatment. We have him on suicide precautions with every 15 minute observations for safety. 2. I encouraged the patient to take part in our therapeutic milieu, attend groups and activities, maintain good hygiene, and try not to isolate. 3. We are going to continue his Intuniv 1 mg nightly as well as his Abilify 5 mg nightly. We might consider raising the Abilify to help with paranoia if that continues to persist. 4. We are going to discontinue the Lexapro and start him on duloxetine 30 mg daily with a plan to get to 60 mg daily over the next few days. I reviewed the uses, side effects, and time course of this medication and he gave informed consent. 5. I reached out to his physicians stonecutter assistant at [facility] and I am awaiting a phone call back to discuss the case. I do have some concerns that he may have bipolar disorder type II in which case we might want to adjust medications although Abilify is a reasonable treatment. 6. The social organization professor will try to set up a family meeting in the next few days and also arrange for transportation home. Right now, I do not feel comfortable having him drive himself back to [place]. 7. Disposition will likely be back home with outpatient medication management and counseling to continue. He also might be a good candidate for intensive outpatient treatment. We will hold off on work for now. 10/15/2023: We will continue with our current level of observations and precautions. Today, we decided together to discontinue the Abilify and start some Seroquel and try to titrate towards 300 mg at bedtime. Tonight we will started at 100 mg. Hopefully, this will help with what we think is bipolar disorder type II. I also ordered a fasting lipid profile baseline. I reviewed the uses, side effects, and time course and he gave informed consent. I asked him to continue to participate in the therapeutic milieu and help distract himself. 10/16/2023: We will continue with our current level of observations and precautions. Today I will increase the Seroquel to 200 mg nightly with the eventual goal of 300 mg at bedtime. In a few days, we may also increase the duloxetine. 10/17/2023: We will continue with her current level of observation and precautions. Tonight, we will increase the Seroquel to 300 mg nightly and then just leave it there. I would hold off on increasing the duloxetine for a couple of days because of the changes in Seroquel. I do not want to do 2 things at 1 time. I encouraged him to keep participating and doing well. We are setting up a family meeting soon. Suicide Risk Level Suicide Risk Level: Moderate (q15 min suicide checks) Risk Factors Assessment Do You Have Access To A Gun?: No Protective Factors Assessment Employed: No Interval History Identifying Information Chris is a 33-year-old single male from [place]. He was admitted to our unit via the emergency room on October 12. He had left home to start a new job but had a plan to go to a hotel and overdose on all of his medications to end his life. He got on the road and just drove for several hours and eventually ended up in our emergency room for help. Chief Complaint "I left home with the intention to kill myself." Review of Systems Sleep Information Total Hours of Sleep: 7.5 Sleep Comments: Pt started Seroquel 100mg at HS Meal Information Percent Meal Consumed - Breakfast: 100 Percent Meal Consumed - Lunch: 100 Percent Meal Consumed - Dinner: 100 Subjective Subjective Today I met with the patient, received nursing report, and reviewed his chart. We also had a multidisciplinary treatment team meeting to discuss his care. Chris is in our hospital due to concerns of severe depression and suicidal ideation with a pretty elaborate plan. Staff report that he had a pretty good day yesterday. They have noticed a brighter affect. He denied suicidal ideation. He seemed to tolerate the higher dose of Seroquel at 200 mg last night. He described his mood at 6 out of 10 where 10 is the best it could be. He described his mood as "satisfied." He slept well. When I met with the patient today, he said that with the higher dose of Seroquel he had a harder time getting going in the morning. He said it took about 30 minutes till he felt he can function. He is willing to go up to the 300 mg dose because he knows it may offer some good stability of his mood but also could help improve his mood. He noticed that when he started thinking about his future, he started getting somewhat down on himself. He is denying suicidal thoughts this morning and describes his mood is "worried and anxious." He was pleased to tell me that he feels like his mood has not dropped below a 5 in the last 24 hours. He feels like he is tolerating the Cymbalta just fine. Physical Exam Psychiatric Patient was alert and cooperative. Eye contact was good. He was clean and well-groomed. Speech was normal. Mood was described as "worried and anxious." Affect looked brighter than yesterday. Thought process was logical and goal- directed. There was no evidence of any hallucinations or delusions. He denied suicidal ideation today. He denied homicidal thoughts. Memory and concentration were good. No abnormal movements were seen. Gait was normal. Insight and judgment are impaired. Vital Signs (Past 24 Hours) Last Vital Signs Temp 36.6 C 10/17/23 06:29 Pulse 84 10/17/23 06:29 Resp 16 10/17/23 06:29 BP 104/70 10/17/23 06:29 Pulse Ox 97 10/16/23 06:48 O2 Del Method Room Air 10/16/23 06:48 Results & Data ([facility]) Laboratory Results Laboratory Results - last 24 hr 10/17/23 10:35 Estimat Average Glucose 97 Hemoglobin A1c 5.0 Current Inpatient Medications Current Inpatient Medications: Current Inpatient Medications Acetaminophen (Acetaminophen 325 Mg Tab) 650 mg PO Q4H PRN PRN Reason: Headache or Minor Fever Stop: 11/12/23 21:30 Al Hydrox/Mg Hydrox/Simethicone (Aluminum/Magnesium Susp 30 Ml Udc) 30 ml PO Q4H PRN PRN Reason: GI Upset Stop: 11/12/23 21:30 Bismuth Subsalicylate (Bismuth Subsalicylate Liqd 236 Ml) 15 ml PO PRN PRN PRN Reason: Loose Stool Stop: 11/12/23 21:30 Duloxetine HCl (Duloxetine Hcl 30 Mg Cap) 30 mg PO QAM SHERLEY Stop: 11/13/23 09:14 Last Admin: 10/17/23 08:29 Dose: 30 mg Guanfacine HCl (Guanfacine Hcl 1 Mg Ertab) 1 mg PO HS SHERLEY Stop: 11/13/23 21:59 Last Admin: 10/16/23 21:33 Dose: 1 mg Hydroxyzine HCl (Hydroxyzine Hcl 25 Mg Tab) 50 mg PO HSZ PRN PRN Reason: Insomnia Stop: 11/12/23 21:30 Hydroxyzine HCl (Hydroxyzine Hcl 25 Mg Tab) 25 mg PO Q4H PRN PRN Reason: Anxiety Stop: 11/12/23 21:30 Magnesium Hydroxide (Magnesium Hydroxide Susp 30 Ml Udc) 30 ml PO DAILY PRN PRN Reason: Constipation Stop: 11/12/23 21:30 Ondansetron HCl (Ondansetron 4 Mg Od Tab) 4 mg PO Q6H PRN PRN Reason: Nausea Stop: 11/13/23 14:57 Quetiapine Fumarate (Quetiapine Fumarate 300 Mg Tablet) 300 mg PO HS SHERLEY Stop: 11/16/23 21:59 Sodium Chloride (Sodium Chloride 0.65% Na Soln 45 Ml ([place])) 1 - 2 sprays NA PRN PRN PRN Reason: Nasal Dryness/Congestion Stop: 11/12/23 21:30 Mental Health & Subst Abuse Tx Therapist Name of Therapist: Sheree CUELLO Post Discharge Appointments Primary Care Physician Name Of Family Doctor/PCP: In between providers
[2023-10-17] MEDS: QUEtiapine FUMARATE 300 MG TABLET PO SCH (21:14)
--- NOTE | 2023-10-18 13:51 | Psychiatric Progress Note ---
Date of Service October 18, 2023 Impression / Recommendations Impression 10/14/2023: This is a gentleman that had a long history of problems with depression and anxiety going back at least since he was a teenager. He also has a strong family history of depression and anxiety, and possible bipolar disorder. He has had a lot of difficulty with coping and functioning. He had to quit his job and so he is very down on himself about that. He feels an adequate around other people and sometimes will get to the point of paranoia thinking that people are talking about him. With this new job supposed to start yesterday, he hit a breaking point and became acutely suicidal. He had a disti nct well thought out plan of ending his life. We know this because he took his medications with him when he was going to work as well as leaving his cell phone at home on purpose. He is also had difficulty functioning independently and has to live with his parents and I think that brings him down as well. He also does not have much of a social support system other than his parents. I think this gentleman is an acute danger of suicide and I am very glad that he came in for help. 10/15/2023: Patient is settled in well on the unit and is working hard to get better. He seems to be tolerating his medication adjustments. We are observing some of his anxious habits which are congruent with what he told us. I think he is still in acute danger to himself and others and still requires inpatient psychiatric hospitalization. 10/16/2023: Patient is engaging well on the unit and seems to be showing a little bit of improvement. He is tolerating the Seroquel and other Medication adjustments that we started yesterday. Lipid profile is good at baseline. 10/17/2023: We continue to see gradual improvement. He is tolerating the medications pretty well. He still is having some guilt, but he is trying hard to get better. 10/18/2023: We continue to see progress. We will see how the family meeting goes today and see if we can work on discharge planning. I am still very concerned about him given his elaborate suicide plan. We also want a make sure that family is willing to come pick him up and take him back home at the time of discharge. Today I spent about 36 minutes on the case. This included meeting with the patient, reviewing the chart, nursing report, multidisciplinary team meeting, orders, and documentation. (1) Bipolar 2 disorder, major depressive episode: (2) Generalized anxiety disorder: (3) Alcohol use disorder in remission: Plan 10/14/2023: 1. Patient was admitted to our unit for safety, further evaluation, and acosta atment. We have him on suicide precautions with every 15 minute observations for safety. 2. I encouraged the patient to take part in our therapeutic milieu, attend groups and activities, maintain good hygiene, and try not to isolate. 3. We are going to continue his Intuniv 1 mg nightly as well as his Abilify 5 mg nightly. We might consider raising the Abilify to help with paranoia if that continues to persist. 4. We are going to discontinue the Lexapro and start him on duloxetine 30 mg daily with a plan to get to 60 mg daily over the next few days. I reviewed the uses, side effects, and time course of this medication and he gave informed consent. 5. I reached out to his physicians recruitment and outreach assistant at [facility] and I am awaiting a phone call back to discuss the case. I do have some concerns that he may have bipolar disorder type II in which case we might want to adjust medications although Abilify is a reasonable treatment. 6. The nursing home social worker will try to set up a family meeting in the next few days and also arrange for transportation home. Right now, I do not feel comfortable having him drive himself back to [place]. 7. Disposition will likely be back home with outpatient medication management and counseling to continue. He also might be a good candidate for intensive outpatient treatment. We will hold off on work for now. 10/15/2023: We will continue with our current level of observations and precautions. Today, we decided together to discontinue the Abilify and start some Seroquel and try to titrate towards 300 mg at bedtime. Tonight we will started at 100 mg. Hopefully, this will help with what we think is bipolar disorder type II. I also ordered a fasting lipid profile baseline. I reviewed the uses, side effects, and time course and he gave informed consent. I asked him to continue to participate in the therapeutic milieu and help distract himself. 10/16/2023: We will continue with our current level of observations and precautions. Today I will increase the Seroquel to 200 mg nightly with the eventual goal of 300 mg at bedtime. In a few days, we may also increase the duloxetine. 10/17/2023: We will continue with her current level of observation and precautions. Tonight, we will increase the Seroquel to 300 mg nightly and then just leave it there. I would hold off on increasing the duloxetine for a couple of days because of the changes in Seroquel. I do not want to do 2 things at 1 time. I encouraged him to keep participating and doing well. We are setting up a family meeting soon. 10/18/2023: The family meeting will take place today. I am going to continue the Seroquel at 300 mg nightly. I am also going to increase his Cymbalta to 60 mg daily starting tomorrow, October 18. Hopefully, we will see continued improvement and can look towards a discharge in the next few days if things progress as I hope. Suicide Risk Level Suicide Risk Level: Low (q15 min observation checks) Risk Factors Assessment Do You Have Access To A Gun?: No Protective Factors Assessment Employed: No Interval History Identifying Information Chris is a 33-year-old single male from [place]. He was admitted to our unit via the emergency room on October 12. He had left home to start a new job but had a plan to go to a hotel and overdose on all of his medications to end his life. He got on the road and just drove for several hours and eventually ended up in our emergency room for help. Chief Complaint "I left home with the intention to kill myself." Review of Systems Sleep Information Total Hours of Sleep: 7 Sleep Comments: Pt started Seroquel 100mg at HS Meal Information Percent Meal Consumed - Breakfast: 100 Percent Meal Consumed - Lunch: 100 Percent Meal Consumed - Dinner: 100 Subjective Subjective Today I met with the patient, received nursing report, and reviewed his chart. We also had a multidisciplinary team meeting to discuss his care. Chris is in our hospital due to concerns of severe depression and suicidal ideation with an elaborate plan. Staff report that he got 7 hours of sleep. He has a family meeting scheduled today at 10:30 AM. We are looking into partial hospitalization programs in his local area. Staff have seen him brighter, attending groups, and social. He showered. He described his mood at 6 out of 10 and used the word "unsettled." When I met with him today, I taught him some strategies that might help improve his mood by using a positive psychology approach. He told me his mood today was "content and nervous." He is worried about the family meeting and how that will go. He denied suicidal ideation, self-harm urges, and homicidal thoughts. He was feeling a little bit groggy but is tolerating the Seroquel at the 300 mg dose. He is interested in raising the Cymbalta to 60 mg starting tomorrow. Physical Exam Psychiatric Patient was alert and cooperative. Eye contact was good. He was clean and well-groomed. Speech was normal. Mood was described as "content but nervous." Affect looked mostly full. Thought process was logical and goal-directed. There was no evidence of any hallucinations or delusions. He denied suicidal ideation today. He denied homicidal thoughts. Memory and concentration were good. No abnormal movements were seen. Gait was normal. Insight and judgment are impaired. Vital Signs (Past 24 Hours) Last Vital Signs Temp 36.8 C 10/18/23 06:40 Pulse 84 10/18/23 06:41 Resp 16 10/18/23 06:40 BP 107/70 10/18/23 06:41 Pulse Ox 97 10/16/23 06:48 O2 Del Method Room Air 10/16/23 06:48 Results & Data ([facility]) Current Inpatient Medications Current Inpatient Medications: Current Inpatient Medications Acetaminophen (Acetaminophen 325 Mg Tab) 650 mg PO Q4H PRN PRN Reason: Headache or Minor Fever Stop: 11/12/23 21:30 Al Hydrox/Mg Hydrox/Simethicone (Aluminum/Magnesium Susp 30 Ml Udc) 30 ml PO Q4H PRN PRN Reason: GI Upset Stop: 11/12/23 21:30 Bismuth Subsalicylate (Bismuth Subsalicylate Liqd 236 Ml) 15 ml PO PRN PRN PRN Reason: Loose Stool Stop: 11/12/23 21:30 Duloxetine HCl (Duloxetine Hcl 30 Mg Cap) 30 mg PO QAM SHERLEY Stop: 11/13/23 09:14 Last Admin: 10/18/23 08:15 Dose: 30 mg Guanfacine HCl (Guanfacine Hcl 1 Mg Ertab) 1 mg PO HS SHERLEY Stop: 11/13/23 21:59 Last Admin: 10/17/23 21:14 Dose: 1 mg Hydroxyzine HCl (Hydroxyzine Hcl 25 Mg Tab) 50 mg PO HSZ PRN PRN Reason: Insomnia Stop: 11/12/23 21:30 Hydroxyzine HCl (Hydroxyzine Hcl 25 Mg Tab) 25 mg PO Q4H PRN PRN Reason: Anxiety Stop: 11/12/23 21:30 Magnesium Hydroxide (Magnesium Hydroxide Susp 30 Ml Udc) 30 ml PO DAILY PRN PRN Reason: Constipation Stop: 11/12/23 21:30 Ondansetron HCl (Ondansetron 4 Mg Od Tab) 4 mg PO Q6H PRN PRN Reason: Nausea Stop: 11/13/23 14:57 Quetiapine Fumarate (Quetiapine Fumarate 300 Mg Tablet) 300 mg PO HS SHERLEY Stop: 11/16/23 21:59 Last Admin: 10/17/23 21:14 Dose: 300 mg Sodium Chloride (Sodium Chloride 0.65% Na Soln 45 Ml ([place])) 1 - 2 sprays NA PRN PRN PRN Reason: Nasal Dryness/Congestion Stop: 11/12/23 21:30 Mental Health & Subst Abuse Tx Therapist Name of Therapist: Sheree CUELLO Post Discharge Appointments Primary Care Physician Name Of Family Doctor/PCP: In between providers
[2023-10-19 06:16] VITALS: O2SAT 96
[2023-10-19] MEDS: DULoxetine HCL 60 MG CAP PO SCH (08:35)
--- NOTE | 2023-10-19 13:03 | Psychiatric Progress Note ---
Date of Service October 19, 2023 Impression / Recommendations Impression 33 yo man with history of depression and anxiety admitted after impulsive behavior and with SI with plan. Diagnostically consistent with likely BPAD type II current mixed episode. Remains in need of inpatient psychiatric hospitalization for safety and stabilization, diagnostic clarification, medication management and establishment of further coping skills and outpatient support. 10/19/2023: Reports some improvement in mood but still with thoughts he finds "troubling" and which have been occupying much of his attention. Tolerating medications well. Reviewed side effects included but not limited to metabolic risks. Reviewed option to try [place], he is not interested at this time as wants to continue Seroquel trial. Limited insight into why he made impulsive decisions around driving and history of elopement. He agrees hypomania could be component of this. Will give mood disorder questionnaire. Reviewed interim progress per Dr. Jarrett. Today I spent about 50 minutes on the case. This included meeting with the patient, reviewing the chart, nursing report, multidisciplinary team meeting, orders, and documentation. (1) Bipolar 2 disorder, major depressive episode: (2) Generalized anxiety disorder: (3) Alcohol use disorder in remission: Plan 10/19/2023: Continue current medications and tx plan. Mood Disorder Questionnaire. Suicide Risk Level Suicide Risk Level: Moderate (q15 min suicide checks) (erratic behaviors and depression prior to admission but denying SI currently and feels safe on the unit, agrees to let nurses know if he feels unsafe or requires additional support) Risk Factors Assessment Do You Have Access To A Gun?: No Protective Factors Assessment Employed: No Interval History Identifying Information Chris is a 33-year-old single male from [place]. He was admitted to our unit via the emergency room on October 12. He had left home to start a new job but had a plan to go to a hotel and overdose on all of his medications to end his life. He got on the road and just drove for several hours and eventually ended up in our emergency room for help. Chief Complaint "I have this reoccurring elopement issue". Review of Systems Sleep Information Total Hours of Sleep: 7 Sleep Comments: Meal Information Percent Meal Consumed - Breakfast: 100 Percent Meal Consumed - Lunch: 100 Percent Meal Consumed - Dinner: 100 Subjective Subjective Patient was seen & assessed and interval progress reviewed with treatment team nursing and social work. He describes feeling less depressed but still with some "troubling thoughts". Describes these in the context of worries about how his life may change given recent events. Tolerating his medications without side effects, feels they are helping with his depression. Still with anxiety. Wonders about component of ADHD, likes that guanfacine helps with focus and ability to read. Physical Exam Psychiatric Orientation: alert and oriented x 3 Apperance: appropriately dressed and appropriately groomed Eye Contact: good eye contact Motor Behavior: steady gait and station and no abnormal motor movements Speech: normal rate/rhythm/volume of speech Affect: euthymic affect; + mood not congruent with affect Mood: + depressed mood and + anxious mood Thought Process: goal directed thought process Thought Content: reality based without delusions Suicidal Thoughts: denies suicidal thoughts (but still with "troubling thoughts") Homicidal Thoughts: denies homicidal thoughts Hallucinations: no auditory hallucinations and no visual hallucinations Insight: + fair insight Judgment: + limited judgement Vital Signs (Past 24 Hours) Last Vital Signs Temp 36.3 C L 10/19/23 06:15 Pulse 77 10/19/23 06:15 Resp 18 10/19/23 06:15 BP 106/71 10/19/23 06:15 Pulse Ox 96 10/19/23 06:15 O2 Del Method Room Air 10/19/23 06:15 Results & Data ([facility]) Current Inpatient Medications Current Inpatient Medications: Current Inpatient Medications Acetaminophen (Acetaminophen 325 Mg Tab) 650 mg PO Q4H PRN PRN Reason: Headache or Minor Fever Stop: 11/12/23 21:30 Al Hydrox/Mg Hydrox/Simethicone (Aluminum/Magnesium Susp 30 Ml Udc) 30 ml PO Q4H PRN PRN Reason: GI Upset Stop: 11/12/23 21:30 Bismuth Subsalicylate (Bismuth Subsalicylate Liqd 236 Ml) 15 ml PO PRN PRN PRN Reason: Loose Stool Stop: 11/12/23 21:30 Duloxetine HCl (Duloxetine Hcl 60 Mg Cap) 60 mg PO QAM [place] Stop: 11/18/23 08:59 Last Admin: 10/19/23 08:35 Dose: 60 mg Guanfacine HCl (Guanfacine Hcl 1 Mg Ertab) 1 mg PO HS [place] Stop: 11/13/23 21:59 Last Admin: 04/02/24 21:34 Dose: 1 mg Hydroxyzine HCl (Hydroxyzine Hcl 25 Mg Tab) 50 mg PO HSZ PRN PRN Reason: Insomnia Stop: 11/12/23 21:30 Hydroxyzine HCl (Hydroxyzine Hcl 25 Mg Tab) 25 mg PO Q4H PRN PRN Reason: Anxiety Stop: 11/12/23 21:30 Magnesium Hydroxide (Magnesium Hydroxide Susp 30 Ml Udc) 30 ml PO DAILY PRN PRN Reason: Constipation Stop: 11/12/23 21:30 Ondansetron HCl (Ondansetron 4 Mg Od Tab) 4 mg PO Q6H PRN PRN Reason: Nausea Stop: 11/13/23 14:57 Quetiapine Fumarate (Quetiapine Fumarate 300 Mg Tablet) 300 mg PO HS [place] Stop: 11/16/23 21:59 Last Admin: 10/18/23 21:34 Dose: 300 mg Sodium Chloride (Sodium Chloride 0.65% Na Soln 45 Ml ([place])) 1 - 2 sprays NA PRN PRN PRN Reason: Nasal Dryness/Congestion Stop: 11/12/23 21:30 Mental Health & Subst Abuse Tx Therapist Name of Therapist: Sheree CUELLO Post Discharge Appointments Primary Care Physician Name Of Family Doctor/PCP: In between providers
[2023-10-20 06:25] VITALS: RESP 16
--- NOTE | 2023-10-20 09:23 | Psychiatric Progress Note ---
Date of Service October 20, 2023 Impression / Recommendations Impression 33 yo man with history of depression and anxiety admitted after impulsive behavior and with SI with plan. Diagnostically consistent with likely BPAD type II current mixed episode. Remains in need of inpatient psychiatric hospitalization for safety and stabilization, diagnostic clarification, medication management and establishment of further coping skills and outpatient support. 10/20/2023: Mood Disorder Questionnaire consistent with likely BPAD type II diagnosis. Reviewed that the bipolar type 2 diagnosis should be re-evaluated in the future if impulsiveness seems better explained by other factors, such as AD HD or severe anxiety as he continues with outpatient treatment. Significant component of anxiety leading to recent near suicide attempt and contributing to depression and recent SI. He is agreeable to IOP after discharge to continue to work on challenging anxious thoughts and learning more CBT strategies. Today I spent about 50 minutes on the case. This included meeting with the patient, reviewing the chart, nursing report, multidisciplinary team meeting, orders, and documentation. (1) Bipolar 2 disorder, major depressive episode: (2) Generalized anxiety disorder: (3) Alcohol use disorder in remission: Plan 10/20/2023: * Bipolar Disorder Type 2: - Continue current medications (Seroquel, Cymbalta, guanfacine) - Monitor for any new side effects or changes in mood * Anxiety: - Encourage practicing cognitive behavioral therapy (CBT) techniques, such as being a adult education manager and challenging catastrophizing thoughts - Find a suitable Intensive Outpatient Program (IOP) focused on CBT to help manage anxiety 10/19/2023: Continue current medications and tx plan. Mood Disorder Questionnaire. Suicide Risk Level Suicide Risk Level: Moderate (q15 min suicide checks) (erratic behaviors and depression prior to admission but denying SI currently and feels safe on the unit, agrees to let nurses know if he feels unsafe or requires additional support) Risk Factors Assessment Do You Have Access To A Gun?: No Protective Factors Assessment Employed: No Interval History Identifying Information Chris is a 33-year-old single male from [place]. He was admitted to our unit via the emergency room on October 12. He had left home to start a new job but had a plan to go to a hotel and overdose on all of his medications to end his life. He got on the road and just drove for several hours and eventually ended up in our emergency room for help. Chief Complaint "I'm in a better place everyday". Review of Systems Sleep Information Total Hours of Sleep: 8 Sleep Comments: HS scheduled Seroquel Meal Information Percent Meal Consumed - Breakfast: 100 Percent Meal Consumed - Lunch: 100 Percent Meal Consumed - Dinner: 100 Subjective Subjective Patient was seen & assessed and interval progress reviewed with treatment team nursing and social work. Attending groups, slept 8 hours, felt "calm" last evening. He reports feeling better overall. He's been contemplating his future after discharge but denies feeling overly depressed or anxious. He discusses his recent near suicide attempt involving planning the drive and not using credit cards or bringing his phone so he could not be tracked. Feels he ultimately did not go through with this due to religion beliefs and concern for his family and he's glad he sought here and is benefitting from this hospitalization. He has a history of struggles at work, particularly in the ICU, due to significant anxiety and self-doubt, leading them to quit for mental health reasons. 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 He discussed knowing now that he is prone to catastrophizing and fortune-telling, assuming negative outcomes without evidence. States he last experienced suicidal thoughts approximately 72 hours ago. He expresses a desire to take his time with discharge and ensure he is ready to leave, mentioning that he has found his stay beneficial and feels safer each day. The patient's family is going to help with transportation upon discharge, and he prefers a weekend discharge to accommodate his family's schedule. He has not experienced any new side effects from his medications, and he reports that the sedating effects of Seroquel have lessened over time. He is open to the possibility of a bipolar type 2 diagnosis, understanding that it may inform future providers about medication considerations after reviewing the mood disorder questionnaire he completed. Physical Exam Psychiatric Orientation: alert and oriented x 3 Apperance: appropriately dressed and appropriately groomed Eye Contact: good eye contact Motor Behavior: steady gait and station and no abnormal motor movements Speech: normal rate/rhythm/volume of speech Affect: + anxious affect Mood: + depressed mood and + anxious mood Thought Process: goal directed thought process Thought Content: reality based without delusions Suicidal Thoughts: denies suicidal thoughts Homicidal Thoughts: denies homicidal thoughts Hallucinations: no auditory hallucinations and no visual hallucinations Insight: + fair insight Judgment: + fair judgement Vital Signs (Past 24 Hours) Last Vital Signs Temp 36.2 C L 10/20/23 06:00 Pulse 78 10/20/23 06:00 Resp 16 10/20/23 06:00 BP 116/78 10/20/23 06:00 Pulse Ox 96 10/19/23 06:15 O2 Del Method Room Air 10/19/23 06:15 Results & Data ([facility]) Current Inpatient Medications Current Inpatient Medications: Current Inpatient Medications Acetaminophen (Acetaminophen 325 Mg Tab) 650 mg PO Q4H PRN PRN Reason: Headache or Minor Fever Stop: 11/12/23 21:30 Al Hydrox/Mg Hydrox/Simethicone (Aluminum/Magnesium Susp 30 Ml Udc) 30 ml PO Q4H PRN PRN Reason: GI Upset Stop: 11/12/23 21:30 Bismuth Subsalicylate (Bismuth Subsalicylate Liqd 236 Ml) 15 ml PO PRN PRN PRN Reason: Loose Stool Stop: 11/12/23 21:30 Duloxetine HCl (Duloxetine Hcl 60 Mg Cap) 60 mg PO QAM [place] Stop: 11/18/23 08:59 Last Admin: 10/20/23 08:35 Dose: 60 mg Guanfacine HCl (Guanfacine Hcl 1 Mg Ertab) 1 mg PO HS [place] Stop: 11/13/23 21:59 Last Admin: 10/19/23 21:26 Dose: 1 mg Hydroxyzine HCl (Hydroxyzine Hcl 25 Mg Tab) 50 mg PO HSZ PRN PRN Reason: Insomnia Stop: 11/12/23 21:30 Hydroxyzine HCl (Hydroxyzine Hcl 25 Mg Tab) 25 mg PO Q4H PRN PRN Reason: Anxiety Stop: 11/12/23 21:30 Magnesium Hydroxide (Magnesium Hydroxide Susp 30 Ml Udc) 30 ml PO DAILY PRN PRN Reason: Constipation Stop: 11/12/23 21:30 Ondansetron HCl (Ondansetron 4 Mg Od Tab) 4 mg PO Q6H PRN PRN Reason: Nausea Stop: 11/13/23 14:57 Quetiapine Fumarate (Quetiapine Fumarate 300 Mg Tablet) 300 mg PO HS [place] Stop: 11/16/23 21:59 Last Admin: 10/19/23 21:26 Dose: 300 mg Sodium Chloride (Sodium Chloride 0.65% Na Soln 45 Ml ([place])) 1 - 2 sprays NA PRN PRN PRN Reason: Nasal Dryness/Congestion Stop: 11/12/23 21:30 Mental Health & Subst Abuse Tx Therapist Name of Therapist: Sheree CUELLO Post Discharge Appointments Primary Care Physician Name Of Family Doctor/PCP: In between providers
--- NOTE | 2023-10-21 09:01 | Psychiatric Progress Note ---
Date of Service October 21, 2023 Impression / Recommendations Impression 33 yo man with history of depression and anxiety admitted after impulsive behavior and with SI with plan. Diagnostically consistent with likely BPAD type II current mixed episode. Remains in need of inpatient psychiatric hospitalization for safety and stabilization, diagnostic clarification, medication management and establishment of further coping skills and outpatient support. MNPR due to very loud snoring which is disruptive to roommates 10/21/2023: He continues to experience symptoms of anxiety and depression and can get caught up quickly in ruminative anxious thoughts which then lead him to feel overwhelmed and can spiral into SI. Today, we have agreed to maintain the current regimen of Cymbalta in the morning and the combination of Seroquel and Guanfacine at night. He has been encouraged to engage in the Intensive Outpatient Program (IOP) with [facility] for structured Cognitive Behavioral Therapy (CBT). Discussed option for him to consider having one debrief session with his individual therapist after hospitalization prior to the commencement of IOP as he would like to be able to see his therapist at least once after discharge. Regarding the issue of snoring and the potential for obstructive sleep apnea, he has been advised to record his sleep at home to better understand his snoring and sleep behaviors as he feels this has not been a problem before. It is recommended that he discuss this issue with his primary care provider and consider undergoing a sleep study if deemed appropriate in the future if snoring persists. Additionally, it's possible that Seroquel may be a contributing factor to the snoring but seems the snoring was occurring even prior to the initiation of this . Today I spent about 35 minutes on the case. This included meeting with the patient, reviewing the chart, nursing report, multidisciplinary team meeting, orders, and documentation. (1) Bipolar 2 disorder, major depressive episode: (2) Generalized anxiety disorder: (3) Alcohol use disorder in remission: Plan 10/21/2023: Continue current medications and tx plan. 10/20/2023: * Bipolar Disorder Type 2: - Continue current medications (Seroquel, Cymbalta, guanfacine) - Monitor for any new side effects or changes in mood * Anxiety: - Encourage practicing cognitive behavioral therapy (CBT) techniques, such as being a operations clerk and challenging catastrophizing thoughts - Find a suitable Intensive Outpatient Program (IOP) focused on CBT to help manage anxiety 10/19/2023: Continue current medications and tx plan. Mood Disorder Questionnaire. Suicide Risk Level Suicide Risk Level: Moderate (q15 min suicide checks) (erratic behaviors and depression prior to admission but denying SI currently and feels safe on the unit, agrees to let nurses know if he feels unsafe or requires additional support) Risk Factors Assessment Do You Have Access To A Gun?: No Protective Factors Assessment Employed: No Interval History Identifying Information Chris is a 33-year-old single male from [place]. He was admitted to our unit via the emergency room on October 12. He had left home to start a new job but had a plan to go to a hotel and overdose on all of his medications to end his life. He got on the road and just drove for several hours and eventually ended up in our emergency room for help. Chief Complaint "I get really anxious about dying or developing a medical condition". Review of Systems Sleep Information Total Hours of Sleep: 6.30 Sleep Comments: HS Seroquel and Tenex Meal Information Percent Meal Consumed - Breakfast: 100 Percent Meal Consumed - Lunch: 100 Percent Meal Consumed - Dinner: 100 Subjective Subjective Patient was seen & assessed and interval progress reviewed with treatment team nursing and social work. [place] "uneasy" and "guilty" after taking to his parents last night. He reports a general sense of well-being, noting his mood is "pretty good" but then describes increased anxiety about a variety of topics. He shares apprehensions about future treatment options, specifically the prospect of enrolling in an Intensive Outpatient Program (IOP). He is reluctant to discontinue his current therapeutic relationship for the 12-week duration of the IOP due to insurance stipulations and the strong rapport established with his therapist. We discuss this as well as his concerns about finding out he has been snoring loudly and his desire for reassure that his lipid panel and glucose labwork were normal. He notes he used to frequently seek this type of reassurance from his PCP as he worries about developing a chronic medical condition. Physical Exam Psychiatric Orientation: alert and oriented x 3 Apperance: appropriately dressed and appropriately groomed Eye Contact: good eye contact Motor Behavior: steady gait and station and no abnormal motor movements Speech: normal rate/rhythm/volume of speech Affect: + anxious affect Mood: + depressed mood and + anxious mood Thought Process: + perseveration Thought Content: + preoccupation and reality based without delusions Suicidal Thoughts: denies suicidal thoughts Homicidal Thoughts: denies homicidal thoughts Hallucinations: no auditory hallucinations and no visual hallucinations Insight: + fair insight Judgment: + fair judgement Vital Signs (Past 24 Hours) Last Vital Signs Temp 36.5 C 10/21/23 06:32 Pulse 86 10/21/23 06:33 Resp 16 10/21/23 06:32 BP 102/69 10/21/23 06:33 Pulse Ox 96 10/19/23 06:15 O2 Del Method Room Air 10/19/23 06:15 Results & Data ([facility]) Current Inpatient Medications Current Inpatient Medications: Current Inpatient Medications Acetaminophen (Acetaminophen 325 Mg Tab) 650 mg PO Q4H PRN PRN Reason: Headache or Minor Fever Stop: 11/12/23 21:30 Al Hydrox/Mg Hydrox/Simethicone (Aluminum/Magnesium Susp 30 Ml Udc) 30 ml PO Q4H PRN PRN Reason: GI Upset Stop: 11/12/23 21:30 Bismuth Subsalicylate (Bismuth Subsalicylate Liqd 236 Ml) 15 ml PO PRN PRN PRN Reason: Loose Stool Stop: 11/12/23 21:30 Duloxetine HCl (Duloxetine Hcl 60 Mg Cap) 60 mg PO QAM [place] Stop: 11/18/23 08:59 Last Admin: 10/21/23 08:47 Dose: 60 mg Guanfacine HCl (Guanfacine Hcl 1 Mg Ertab) 1 mg PO HS [facility] Stop: 11/13/23 21:59 Last Admin: 10/20/23 21:04 Dose: 1 mg Hydroxyzine HCl (Hydroxyzine Hcl 25 Mg Tab) 50 mg PO HSZ PRN PRN Reason: Insomnia Stop: 11/12/23 21:30 Hydroxyzine HCl (Hydroxyzine Hcl 25 Mg Tab) 25 mg PO Q4H PRN PRN Reason: Anxiety Stop: 11/12/23 21:30 Magnesium Hydroxide (Magnesium Hydroxide Susp 30 Ml Udc) 30 ml PO DAILY PRN PRN Reason: Constipation Stop: 11/12/23 21:30 Ondansetron HCl (Ondansetron 4 Mg Od Tab) 4 mg PO Q6H PRN PRN Reason: Nausea Stop: 11/13/23 14:57 Quetiapine Fumarate (Quetiapine Fumarate 300 Mg Tablet) 300 mg PO HS [facility] Stop: 11/16/23 21:59 Last Admin: 10/20/23 21:04 Dose: 300 mg Sodium Chloride (Sodium Chloride 0.65% Na Soln 45 Ml ([place])) 1 - 2 sprays NA PRN PRN PRN Reason: Nasal Dryness/Congestion Stop: 11/12/23 21:30 Mental Health & Subst Abuse Tx [facility]iatrist [facility] Date Of Appointment With Psychiatric Provider: 11/14/2023 Time of Appointment with Psychiatrist: 11am Psychiatric Appointment Comment: Telehealth [facility] Date of Therapist Appointment: 10/27/2023 Time of Therapist Appointment: 9am Therapy Appointment Comment: telehealth Post Discharge Appointments Primary Care Physician Name Of Family Doctor/PCP: In between providers
--- NOTE | 2023-10-22 09:36 | Psychiatric Progress Note ---
Date of Service October 22, 2023 Impression / Recommendations Impression 33 yo man with history of depression and anxiety admitted after impulsive behavior and with SI with plan. Diagnostically consistent with likely BPAD type II current mixed episode. Remains in need of inpatient psychiatric hospitalization for safety and stabilization, diagnostic clarification, medication management and establishment of further coping skills and outpatient support. 10/22/2023: Ongoing anxiety about transition back to home but depression improving and tolerating medications well. Did not snore last night after sleeping on his side so have discontinued MNPR. He remains nervous about not being able to see his individual therapist while doing IOP but agrees IOP will give good structure and support so he's agreeable to this. Discharge pending his parents availability as felt that it's necessary to have support in helping him get back home due to history and recent impulsive driving. Today I spent about 25 minutes on the case. This included meeting with the patient, reviewing the chart, nursing report, multidisciplinary team meeting, orders, and documentation. (1) Bipolar 2 disorder, major depressive episode: (2) Generalized anxiety disorder: (3) Alcohol use disorder in remission: Plan 10/22/2023: Continue current medications and tx plan. 10/21/2023: Continue current medications and tx plan. 10/20/2023: * Bipolar Disorder Type 2: - Continue current medications (Seroquel, Cymbalta, guanfacine) - Monitor for any new side effects or changes in mood * Anxiety: - Encourage practicing cognitive behavioral therapy (CBT) techniques, such as being a detective chief and challenging catastrophizing thoughts - Find a suitable Intensive Outpatient Program (IOP) focused on CBT to help manage anxiety 10/19/2023: Continue current medications and tx plan. Mood Disorder Questionnaire. Suicide Risk Level Suicide Risk Level: Moderate (q15 min suicide checks) (erratic behaviors and depression prior to admission but denying SI currently and feels safe on the unit, agrees to let nurses know if he feels unsafe or requires additional support) Risk Factors Assessment Do You Have Access To A Gun?: No Protective Factors Assessment Employed: No Interval History Identifying Information Chris is a 33-year-old single male from [place]. He was admitted to our unit via the emergency room on October 12. He had left home to start a new job but had a plan to go to a hotel and overdose on all of his medications to end his life. He got on the road and just drove for several hours and eventually ended up in our emergency room for help. Chief Complaint "Ok". Review of Systems Sleep Information Total Hours of Sleep: 6.5 Sleep Comments: HS Seroquel and Tenex Meal Information Percent Meal Consumed - Breakfast: 100 Percent Meal Consumed - Lunch: 100 Percent Meal Consumed - Dinner: 100 Subjective Subjective Patient was seen & assessed and interval progress reviewed with treatment team nursing and social work. Interested in seeing the applications support lead. He reports an improvement in sleep quality after adopting a side-sleeping position, which appears to have mitigated the issue of snoring, suggesting a positional factor at play. Confirms he has not experienced any suicidal ideation today. He expresses heightened anxiety and preoccupation with thoughts regarding the transition to the upcoming Intensive Outpatient Program (IOP) post-discharge. Conveys nervousness about moving from the controlled environment of the facility to an environment with familiar stressors and triggers. In terms of medication, he has not reported any new concerns. He notes that the initial morning grogginess associated with Seroquel has resolved, and he is experiencing good energy levels during the day. Additionally, he has not encountered any adverse effects such as nausea or headache, which he's had with depression medication in the past. Physical Exam Vital Signs (Past 24 Hours) Last Vital Signs Temp 36.7 C 10/22/23 06:42 Pulse 84 10/22/23 06:43 Resp 16 10/22/23 06:42 BP 112/74 10/22/23 06:43 Pulse Ox 96 10/19/23 06:15 O2 Del Method Room Air 10/19/23 06:15 Results & Data ([facility]) Current Inpatient Medications Current Inpatient Medications: Current Inpatient Medications Acetaminophen (Acetaminophen 325 Mg Tab) 650 mg PO Q4H PRN PRN Reason: Headache or Minor Fever Stop: 11/12/23 21:30 Al Hydrox/Mg Hydrox/Simethicone (Aluminum/Magnesium Susp 30 Ml Udc) 30 ml PO Q4H PRN PRN Reason: GI Upset Stop: 11/12/23 21:30 Bismuth Subsalicylate (Bismuth Subsalicylate Liqd 236 Ml) 15 ml PO PRN PRN PRN Reason: Loose Stool Stop: 11/12/23 21:30 Duloxetine HCl (Duloxetine Hcl 60 Mg Cap) 60 mg PO QAM SHERLEY Stop: 11/18/23 08:59 Last Admin: 10/22/23 07:58 Dose: 60 mg Guanfacine HCl (Guanfacine Hcl 1 Mg Ertab) 1 mg PO HS SHERLEY Stop: 11/13/23 21:59 Last Admin: 10/21/23 21:15 Dose: 1 mg Hydroxyzine HCl (Hydroxyzine Hcl 25 Mg Tab) 50 mg PO HSZ PRN PRN Reason: Insomnia Stop: 11/12/23 21:30 Hydroxyzine HCl (Hydroxyzine Hcl 25 Mg Tab) 25 mg PO Q4H PRN PRN Reason: Anxiety Stop: 11/12/23 21:30 Magnesium Hydroxide (Magnesium Hydroxide Susp 30 Ml Udc) 30 ml PO DAILY PRN PRN Reason: Constipation Stop: 11/12/23 21:30 Ondansetron HCl (Ondansetron 4 Mg Od Tab) 4 mg PO Q6H PRN PRN Reason: Nausea Stop: 11/13/23 14:57 Quetiapine Fumarate (Quetiapine Fumarate 300 Mg Tablet) 300 mg PO HS SHERLEY Stop: 11/16/23 21:59 Last Admin: 10/21/23 21:15 Dose: 300 mg Sodium Chloride (Sodium Chloride 0.65% Na Soln 45 Ml ([place])) 1 - 2 sprays NA PRN PRN PRN Reason: Nasal Dryness/Congestion Stop: 11/12/23 21:30 Mental Health & Subst Abuse Tx [facility]iat[facility] Date Of Appointment With Psychiatric Provider: 11/14/2023 Time of Appointment with Psychiatrist: 11am Psychiatric Appointment Comment: Telehealth Therapist [facility] Date of Therapist Appointment: 10/27/2023 Time of Therapist Appointment: 9am Therapy Appointment Comment: telehealth Post Discharge Appointments Primary Care Physician Name Of Family Doctor/PCP: In between providers
--- NOTE | 2023-10-23 12:16 | Psychiatric Progress Note ---
Date of Service October 23, 2023 Impression / Recommendations Impression 33 yo man with history of depression and anxiety admitted after impulsive behavior and with SI with plan. Diagnostically consistent with likely BPAD type II current mixed episode. Remains in need of inpatient psychiatric hospitalization for safety and stabilization, diagnostic clarification, medication management and establishment of further coping skills and outpatient support. 10/23/2023: improving Today I spent about 37 minutes on the case. This included meeting with the patient, reviewing the chart, nursing repor, and documentation. (1) Bipolar 2 disorder, major depressive episode: (2) Generalized anxiety disorder: (3) Alcohol use disorder in remission: Plan 10/23/2023: continue current meds and tx plan. 10/20/2023: * Bipolar Disorder Type 2: - Continue current medications (Seroquel, Cymbalta, guanfacine) - Monitor for any new side effects or changes in mood * Anxiety: - Encourage practicing cognitive behavioral therapy (CBT) techniques, such as b eing a tour operator and challenging catastrophizing thoughts - Find a suitable Intensive Outpatient Program (IOP) focused on CBT to help manage anxiety 10/19/2023: Continue current medications and tx plan. Mood Disorder Questionnaire. Care reviewed as per Dr. Jarrett below: 10/14/2023: 1. Patient was admitted to our unit for safety, further evaluation, and treatment. We have him on suicide precautions with every 15 minute observations for safety. 2. I encouraged the patient to take part in our therapeutic milieu, attend groups and activities, maintain good hygiene, and try not to isolate. 3. We are going to continue his Intuniv 1 mg nightly as well as his Abilify 5 mg nightly. We might consider raising the Abilify to help with paranoia if that continues to persist. 4. We are going to discontinue the Lexapro and start him on duloxetine 30 mg daily with a plan to get to 60 mg daily over the next few days. I reviewed the uses, side effects, and time course of this medication and he gave informed consent. 5. I reached out to his physicians visitor service assistant at [employer] and I am awaiting a phone call back to discuss the case. I do have some concerns that he may have bipolar disorder type II in which case we might want to adjust medications although Abilify is a reasonable treatment. 6. The social media project manager will try to set up a family meeting in the next few days and also arrange for transportation home. Right now, I do not feel comfortable having him drive himself back to [place]. 7. Disposition will likely be back home with outpatient medication management and counseling to continue. He also might be a good candidate for intensive outpatient treatment. We will hold off on work for now. 10/15/2023: We will continue with our current level of observations and precautions. Today, we decided together to discontinue the Abilify and start some Seroquel and try to titrate towards 300 mg at bedtime. Tonight we will started at 100 mg. Hopefully, this will help with what we think is bipolar disorder type II. I also ordered a fasting lipid profile baseline. I reviewed the uses, side effects, and time course and he gave informed consent. I asked him to continue to participate in the therapeutic milieu and help distract himself. 10/16/2023: We will continue with our current level of observations and precautions. Today I will increase the Seroquel to 200 mg nightly with the eventual goal of 300 mg at bedtime. In a few days, we may also increase the duloxetine. 10/17/2023: We will continue with her current level of observation and precau tions. Tonight, we will increase the Seroquel to 300 mg nightly and then just leave it there. I would hold off on increasing the duloxetine for a couple of days because of the changes in Seroquel. I do not want to do 2 things at 1 time. I encouraged him to keep participating and doing well. We are setting up a family meeting soon. 10/18/2023: The family meeting will take place today. I am going to continue the Seroquel at 300 mg nightly. I am also going to increase his Cymbalta to 60 mg daily starting tomorrow, October 18. Hopefully, we will see continued improvement and can look towards a discharge in the next few days if things progress as I hope. Suicide Risk Level Suicide Risk Level: Moderate (q15 min suicide checks) Risk Factors Assessment Do You Have Access To A Gun?: No Protective Factors Assessment Employed: No Interval History Identifying Information Chris is a 33-year-old single male from [place]. He was admitted to our unit via the emergency room on October 12. He had left home to start a new job but had a plan to go to a hotel and overdose on all of his medications to end his life. He got on the road and just drove for several hours and eventually ended up in our emergency room for help. Chief Complaint "I'm at a totally different place, soooo much better." Review of Systems Sleep Information Total Hours of Sleep: 6.5 Sleep Comments: HS Seroquel and Tenex Meal Information Percent Meal Consumed - Breakfast: 100 Percent Meal Consumed - Lunch: 100 Percent Meal Consumed - Dinner: 100 Subjective Subjective Patient was seen & assessed and interval progress reviewed with nursing and counselor. Patient is cooperative with unit routines and no impulsivity/SI, etc. He is tolerating medications and reviewed his labs/was knowledgable re: need to monitor with [id number] for longer term side effects. Physical Exam Psychiatric Orientation: alert and oriented x 3 Apperance: appropriately dressed and appropriately groomed Eye Contact: good eye contact Motor Behavior: no abnormal motor movements Speech: normal rate/rhythm/volume of speech Affect: euthymic affect Mood: no depressed mood Thought Process: goal directed thought process Thought Content: reality based without delusions Suicidal Thoughts: denies suicidal thoughts Homicidal Thoughts: denies homicidal thoughts Hallucinations: no auditory hallucinations and no visual hallucinations Cognition: attention grossly intact and language grossly intact Estimated Intelligence: consistent with education level Vital Signs (Past 24 Hours) Last Vital Signs Temp 36.7 C 10/23/23 06:38 Pulse 89 10/23/23 06:39 Resp 16 10/23/23 06:38 BP 102/71 10/23/23 06:39 Pulse Ox 96 10/19/23 06:15 O2 Del Method Room Air 10/19/23 06:15 Results & Data ([facility]) Current Inpatient Medications Current Inpatient Medications: Current Inpatient Medications Acetaminophen (Acetaminophen 325 Mg Tab) 650 mg PO Q4H PRN PRN Reason: Headache or Minor Fever Stop: 11/12/23 21:30 Al Hydrox/Mg Hydrox/Simethicone (Aluminum/Magnesium Susp 30 Ml Udc) 30 ml PO Q4H PRN PRN Reason: GI Upset Stop: 11/12/23 21:30 Bismuth Subsalicylate (Bismuth Subsalicylate Liqd 236 Ml) 15 ml PO PRN PRN PRN Reason: Loose Stool Stop: 11/12/23 21:30 Duloxetine HCl (Duloxetine Hcl 60 Mg Cap) 60 mg PO QAM SHERLEY Stop: 11/18/23 08:59 Last Admin: 10/23/23 08:15 Dose: 60 mg Guanfacine HCl (Guanfacine Hcl 1 Mg Ertab) 1 mg PO HS SHERLEY Stop: 11/13/23 21:59 Last Admin: 10/22/23 21:14 Dose: 1 mg Hydroxyzine HCl (Hydroxyzine Hcl 25 Mg Tab) 50 mg PO HSZ PRN PRN Reason: Insomnia Stop: 11/12/23 21:30 Hydroxyzine HCl (Hydroxyzine Hcl 25 Mg Tab) 25 mg PO Q4H PRN PRN Reason: Anxiety Stop: 11/12/23 21:30 Magnesium Hydroxide (Magnesium Hydroxide Susp 30 Ml Udc) 30 ml PO DAILY PRN PRN Reason: Constipation Stop: 11/12/23 21:30 Ondansetron HCl (Ondansetron 4 Mg Od Tab) 4 mg PO Q6H PRN PRN Reason: Nausea Stop: 11/13/23 14:57 Quetiapine Fumarate (Quetiapine Fumarate 300 Mg Tablet) 300 mg PO HS SHERLEY Stop: 11/16/23 21:59 Last Admin: 10/22/23 21:14 Dose: 300 mg Sodium Chloride (Sodium Chloride 0.65% Na Soln 45 Ml ([place])) 1 - 2 sprays NA PRN PRN PRN Reason: Nasal Dryness/Congestion Stop: 11/12/23 21:30 Mental Health & Subst Abuse Tx Psychiatrist [facility] Date Of Appointment With Psychiatric Provider: 11/14/2023 Time of Appointment with Psychiatrist: 11am Psychiatric Appointment Comment: Telehealth [facility]rapist [facility] Date of Therapist Appointment: 10/27/2023 Time of Therapist Appointment: 9am Therapy Appointment Comment: telehealth Post Discharge Appointments Primary Care Physician Name Of Family Doctor/PCP: In between providers
[2023-10-24 06:46] VITALS: BP 107/72; TEMP 97.9
[2023-10-24] MEDS ORDERED: DESTROY THIS MEDICATION ONE (09:49)
--- NOTE | 2023-10-24 10:07 | Discharge Summary ---
Date of Service October 24, 2023 History of Present Illness As per Dr. Jarrett on admission: Today I met with the patient, received nursing report, and reviewed the chart. We also had a multidisciplinary treatment team meeting to discuss his care. Chris lives in [place] with his parents in a house. 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 However, he started to have worsening anxiety and fear as well as paranoia connected to this. He has a history of chronic suicidal ideation but it became much worse. He tells me that he feels like he has had too many failures. 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 He often will have internal dialogue such as saying things like "you cannot do that" or "you are too broken." He is also had much worsening hopelessness lately. He does not want to be a disappointment to others. However, his parents were worried about him starting this new job too soon. He denies any particular triggers that led to him wanting to end his life. His plan was to leave the house and, instead of going to the new job, driving, and checking himself into a hotel, and overdosing on all of his medications. He even left his cell phone at home so he could not be traced. He says that he had been prescribed multiple antihypertensive medications by his outpatient PCP and had been hoarding them. He cannot really identify any major stressors going on other than the new job. He is not in a relationship. He has no children. He has no legal issues. He has no major medical issues. He attends a [employer], but he is not really involved in any other organized activities. He is close with his mother and can open up to her about some of his problems, but he tries not to upset her because she is pretty anxious. Recently had transition from fluoxetine to escitalopram about 1-1/2 months ago, but he does not feel that it really helped. Sleep is poor with occasional initial insomnia due to his anxiety. No nightmares. Appetites been "fine." He describes his mood as anxious and fearful. He has anhedonia. Energy has been poor. Concentration has been a bit better since he started Intuniv. He says he can read better now. He does have guilt and hopelessness. He denies homicidal thoughts. He admits to having suicidal ideation. Yesterday it was at 9 out of 10, where 10 is the worst it could ever be. This morning he says his suicidal thoughts are at 6 out of 10. He denies any self-harm. He has a history of a severe suicide attempt about 14 years ago when he was a freshman in college when he overdosed on Benadryl. He denies any history of trauma or abuse. He is occasionally hearing his name called and often will feel that people are talking about him. When asked about hallucinations he was somewhat vague and it sounds more like he is having obsessive thoughts than auditory hallucinations. He denies any visual hallucinations. He often will do things like, song or repeat things in his head to try to distract himself. He denies ideas of reference. He denies thought insertion or thought removal but sometimes he wonders if people can hear what he is thinking although he quickly can correct himself and tell himself that it is "irrational" to feel that way. He denies any substance use although he has a history of heavy alcohol use about 9 years ago where he would binge. When asked about a history of izabela he describes what might be hypomanic episodes where he will have increased energy, racing thoughts, can get a lot done, can sometimes get a little bit disinhibited, and have surges of self-conf idence. These episodes could last up to a week but not usually that long. He has never been hospitalized for izabela. Physical Exam Psychiatric See admission H&P and DOD assessment. Vital Signs (Past 24 Hours) Last Vital Signs Temp 36.6 C 10/24/23 06:45 Pulse 79 10/24/23 06:45 Resp 16 10/24/23 06:45 BP 107/72 10/24/23 06:45 Pulse Ox 96 10/19/23 06:15 O2 Del Method Room Air 10/19/23 06:15 Principal Diagnosis bipolar II disorder Psychiatric Data See daily stay summary. In short, safety was maintained and the patient was cooperative with care. Medication changes included discontinuation of Abilify and Lexapro in favor of a trial of Seroquel and Cymbalta and they tolerated this well. A family session was held with parents on day of discharge who will be accompanying him home. He will not be starting his new job (work as a nurse) until cleared by his outpatient providers. A safety plan was completed prior to discharge. A 30 day supply of his medication was initially dispensed but I contacted the pharmacy directly around 12:50 pm to request dispense only 15 of each discharge script with 1 refill as psych f/u is not until 11/13. Pharmacist at [facility] confirmed that he had not yet picked up the medication. His home guanfacine ER remainder of rx was returned but he was agreeable to dispose of atenolol, propranolol, and amlodipine according to unit protocol as part of safety plan. He voiced good understanding of need for follow up monitoring of his medications, especially given longer term risks (TD, metabolic) associated with Seroquel. He recognizes that his SI is chronic and may recur. He denies active SI or any intent or plan to harm himself. A referral to a more intensive outpatient programming ([facility]) was recommended but he declined in favor of resuming outpatient therapy but is willing to consider in future. Day of Discharge Assessment Today the patient voices readiness for discharge. They note improvement in mood and deny thoughts to harm self or others. Thoughts remain organized and they are improved from admission. There is no evidence of psychosis. They agree to take mediations as prescribed and keep follow-up appointments. They are stable for discharge to outpatient level of care. Transition of Care Transition Of Care Record: was reviewed with the patient Advance Directives Advance Directives Information Provided: Yes Advance Directives: No Mental Health Advance Directive: No Advance Directives on File: No Living Will: No Power of Work And Family Life Consultant: No Advance Directives Reason:: Declines as Mental Health Visit. Suicide Risk Level Suicide Risk Level Comments: Suicide risk at discharge is deemed low as the patient is no longer requiring 24-hr monitoring, has a safety plan, and is free of suicidal ideation at discharge. Given past attempt and chronic SI he has ongoing risk factors that can't be mitigated. Risk Factors Assessment Male: Yes : Yes Do You Have Access To A Gun?: No Mental Health Diagnoses: Yes Previous Attempt: Yes Previous Psychiatric Hospitalization: Yes Protective Factors Assessment Employed: No Supportive Family: Yes Tobacco Cessation at Discharge Tobacco Cessation Medication Prescribed at Discharge: Not Applicable/Non-Smoker Total Time Total Time Spent: Greater Than 30 Minutes (40 minutes) Total Time Includes: Examination of the patient, Discharge Planning, Medication Reconciliation and Communication with other providers Discharge Data Lab Results 10/13/23 10/13/23 10/13/23 14:52 14:55 19:25 WBC 6.77 RBC 5.10 Hgb 14.2 Hct 41.9 L MCV 82.2 MCH 27.8 MCHC 33.9 RDW Std Deviation 35.9 L RDW Coeff of Kylee 12.0 Plt Count 209 MPV 9.9 Immature Gran % (Auto) 0.3 Neut % (Auto) 75.7 Lymph % (Auto) 17.6 Coos % (Auto) 5.3 Eos % (Auto) 0.7 Baso % (Auto) 0.4 Neut # (Auto) 5.12 Lymph # (Auto) 1.19 L [place] # (Auto) 0.36 Eos # (Auto) 0.05 Baso # (Auto) 0.03 Immature Gran # (Auto) 0.02 Sodium 141 Potassium 3.7 Chloride 106 Carbon Dioxide 27 Anion Gap 8 BUN 12 Creatinine 0.87 Est Cr Clr Drug Dosing 131.1 Est GFR ( Amer) 131.4 Est GFR (Non-Af Amer) 113.4 BUN/Creatinine Ratio 13.8 Glucose 130 H Estimat Average Glucose Hemoglobin A1c Calcium 9.6 Total Bilirubin 0.8 AST 24 ALT 37 Alkaline Phosphatase 70 Total Protein 7.2 Albumin 4.6 Globulin 2.6 Albumin/Globulin Ratio 1.8 Triglycerides Cholesterol LDL Cholesterol, Calc VLDL Cholesterol, Calc HDL Cholesterol Cholesterol/HDL Ratio TSH 1.669 Urine Color Yellow Urine Appearance Clear Urine pH 6.0 Ur Specific [place] 1.009 Urine Protein Negative Urine Glucose (UA) Negative Urine Ketones Negative Urine Blood Negative Urine Nitrite Negative Urine Bilirubin Negative Urine Urobilinogen Negative Ur Leukocyte Esterase Negative Salicylates < 3.0 L Urine Opiates Screen Neg Ur Methadone, Qual Neg Acetaminophen < 3 L Urine Barbiturates Neg Ur Phencyclidine (PCP) Neg U Amphetamin/Meth Scrn Neg MDMA (Ecstasy) Screen Neg U Benzodiazepines Scrn Neg Ur Cocaine Metabolite Neg U Marijuana (THC) Screen Neg Ethyl Alcohol mg/dL < 10.0 SARS-CoV-2, RNA, NAAT NEGATIVE 10/16/23 10/17/23 07:26 10:35 WBC RBC Hgb Hct MCV MCH MCHC RDW Std Deviation RDW Coeff of Kylee Plt Count MPV Immature Gran % (Auto) Neut % (Auto) Lymph % (Auto) Coos % (Auto) Eos % (Auto) Baso % (Auto) Neut # (Auto) Lymph # (Auto) Coos # (Auto) Eos # (Auto) Baso # (Auto) Immature Gran # (Auto) Sodium Potassium Chloride Carbon Dioxide Anion Gap BUN Creatinine Est Cr Clr Drug Dosing Est GFR ( Amer) Est GFR (Non-Af Amer) BUN/Creatinine Ratio Glucose Estimat Average Glucose 97 Hemoglobin A1c 5.0 Calcium Total Bilirubin AST ALT Alkaline Phosphatase Total Protein Albumin Globulin Albumin/Globulin Ratio Triglycerides 142 Cholesterol 178 LDL Cholesterol, Calc 114 VLDL Cholesterol, Calc 28 HDL Cholesterol 36 Cholesterol/HDL Ratio 4.9 TSH Urine Color Urine Appearance Urine pH Ur Specific [place] Urine Protein Urine Glucose (UA) Urine Ketones Urine Blood Urine Nitrite Urine Bilirubin Urine Urobilinogen Ur Leukocyte Esterase Salicylates Urine Opiates Screen Ur Methadone, Qual Acetaminophen Urine Barbiturates Ur Phencyclidine (PCP) U Amphetamin/Meth Scrn MDMA (Ecstasy) Screen U Benzodiazepines Scrn Ur Cocaine Metabolite U Marijuana (THC) Screen Ethyl Alcohol mg/dL SARS-CoV-2, RNA, NAAT Hospital Course (1) Bipolar 2 disorder, major depressive episode: (2) Generalized anxiety disorder: (3) Alcohol use disorder in remission: Plan 10/23/2023: continue current meds and tx plan. 10/20/2023: * Bipolar Disorder Type 2: - Continue current medications (Seroquel, Cymbalta, guanfacine) - Monitor for any new side effects or changes in mood * Anxiety: - Encourage practicing cognitive behavioral therapy (CBT) techniques, such as being a customer pricing manager and challenging catastrophizing thoughts - Find a suitable Intensive Outpatient Program (IOP) focused on CBT to help manage anxiety 10/19/2023: Continue current medications and tx plan. Mood Disorder Questionnaire. Care reviewed as per Dr. Jarrett below: 10/14/2023: 1. Patient was admitted to our unit for safety, further evaluation, and treatment. We have him on suicide precautions with every 15 minute observations for safety. 2. I encouraged the patient to take part in our therapeutic milieu, attend groups and activities, maintain good hygiene, and try not to isolate. 3. We are going to continue his Intuniv 1 mg nightly as well as his Abilify 5 mg nightly. We might consider raising the Abilify to help with paranoia if that continues to persist. 4. We are going to discontinue the Lexapro and start him on duloxetine 30 mg daily with a plan to get to 60 mg daily over the next few days. I reviewed the uses, side effects, and time course of this medication and he gave informed consent. 5. I reached out to his physicians nutrition services assistant at [facility] and I am awaiting a phone call back to discuss the case. I do have some concerns that he may have bipolar disorder type II in which case we might want to adjust medications although Abilify is a reasonable treatment. 6. The director social will try to set up a family meeting in the next few days and also arrange for transportation home. Right now, I do not feel comfortable having him drive himself back to [place]. 7. Disposition will likely be back home with outpatient medication management and counseling to continue. He also might be a good candidate for intensive outpatient treatment. We will hold off on work for now. 10/15/2023: We will continue with our current level of observations and precautions. Today, we decided together to discontinue the Abilify and start some Seroquel and try to titrate towards 300 mg at bedtime. Tonight we will started at 100 mg. Hopefully, this will help with what we think is bipolar disorder type II. I also ordered a fasting lipid profile baseline. I reviewed the uses, side effects, and time course and he gave informed consent. I asked him to continue to participate in the therapeutic milieu and help distract himself. 10/16/2023: We will continue with our current level of observations and precautions. Today I will increase the Seroquel to 200 mg nightly with the e ventual goal of 300 mg at bedtime. In a few days, we may also increase the duloxetine. 10/17/2023: We will continue with her current level of observation and precautions. Tonight, we will increase the Seroquel to 300 mg nightly and then just leave it there. I would hold off on increasing the duloxetine for a couple of days because of the changes in Seroquel. I do not want to do 2 things at 1 time. I encouraged him to keep participating and doing well. We are setting up a family meeting soon. 10/18/2023: The family meeting will take place today. I am going to continue the Seroquel at 300 mg nightly. I am also going to increase his Cymbalta to 60 mg daily starting tomorrow, October 18. Hopefully, we will see continued improvement and can look towards a discharge in the next few days if things progress as I hope. Mental Health & Subst Abuse Tx Psychiatrist [facility] Date Of Appointment With Psychiatric Provider: 11/14/2023 Time of Appointment with Psychiatrist: 11am Psychiatric Appointment Comment: Telehealth Therapist Name of Therapist: [facility] Therapist's Date of Therapist Appointment: 10/27/2023 Time of Therapist Appointment: 9am Therapy Appointment Comment: telehealth Post Discharge Appointments Primary Care Physician Name Of Family Doctor/PCP: In between providers Smoking Cessation Counseling Tobacco Cessation Medication Prescribed at Discharge: Not Applicable/Non-Smoker Discharge Plan Discharge Items Patient Disposition: Home - Self-Care Reason For Visit: SUICIDAL IDEATION Discharge Diagnosis: bipolar disorder Activity: Resume your previous activity Non-emergency contact: Primary Care Provider, Psychiatrist and Therapist Call non-emergency contact if: you have any medication questions and your symptoms worsen Follow-up/Referrals: PCP,NO [Primary Care Provider] - Diet: Regular Addtl Attending Provider Instructions: SPECIAL CARE INSTRUCTIONS: 1. Follow through with your scheduled aftercare appointments. If unable to keep an appointment, please call to reschedule. 2. Take your medication only as prescribed. Medication should not be changed or stopped without the approval of your doctor. In the event of worsening symptoms or concerns about side effects, contact your doctor immediately. 3. Utilize new healthy coping skills, anger management skills, and stress management skills learned during your hospitalization. Journal feelings and process them with a support person. Identify stressors or situations that may result in relapse, deterioration or inappropriate behaviors and develop a plan to deal with those issues. 4. If your coping skills are ineffective and you are in crisis, contact your outpatient providers for direction. If unable to reach your providers, please call the [facility] CRISIS LINE AT , go to the [facility] walk-in center at [address], [address], [place], or go to the closest Emergency Room. 5. Avoid alcohol and un-prescribed drugs. 6. You have been provided with the Mental Health Advance Directives Pamphlet for your review. 7. Your condition is stable for discharge to outpatient level of care, but recovery is an ongoing process. Ifthoughts to harm yourself or others return, follow the safety plan developed during your stay. Planning for a safe return home includes securing weapons. Our treatment team recommends weaponsbe removed from the home until your outpatient provider reassesses your progress. In rare cases where the items themselvescannot be removed, guns and ammunitionshould be secured separatelyand keys stored by a reliable personoutside of the home. If you were admitted on an involuntary commitment, the police or other legal authorities may be involved in this process. AFTERCARE APPOINTMENTS: * Please call your insurance company prior to your scheduled appointment to confirm your aftercare providers are covered. Take your insurance information to your appointments. WHO TO CALL AND WHEN: Medical Emergencies: For questions or emergencies related to your hospital stay, please contact the Inpatient Behavioral Health Unit at [phone]. A social worker psychiatric is on-call 07/02 for the Behavioral Health Unit for emergencies At any time you feel your situation is an emergency, you may also call 911 immediately. Pending Studies at Discharge: No Stand-Alone Forms: My [facility], Smoking Cessation Medications and DC Order Prescriptions: New quetiapine 300 mg Tablet 300 mg PO HS Qty: 30 0RF duloxetine 60 mg Capsule,Delayed Release(Dr/Ec) 60 mg PO QAM Qty: 30 0RF Continued epinephrine 0.3 mg/0.3 mL auto-injector guanfacine 1 mg tablet extended release 24 hr 1 mg PO HS Discontinued escitalopram oxalate [Lexapro] 10 mg Tablet 10 mg PO QPM aripiprazole [Abilify] 5 mg Tablet 5 mg PO HS Discharge Orders: Discharge Order (Routine); Ordered 10/24/23 Ordered By: Julianna Olsen Admission Data Admit Date/Time: 10/13/23 20:56 Attending Provider: Judy Cleary Admit Provider: Zac Jarrett Jr Primary Care Provider: PCP,NO Other Providers: Zac Jarrett Jr Other Interventions: Discharge Summary Assessment (RN) Last Done: 10/24/23 10:18 Coding Level of Care Code 57644 D/C day mgmt > 30 min Diagnoses Bipolar 2 disorder, major depressive episode F31.81 Generalized anxiety disorder F41.1 Alcohol use disorder in remission F10.91
[2023-10-24 10:29] VITALS: PULSE 82
== END 2023-10-24 11:03 | disposition home or self-care (01) | DRG 885 ==
LOC: ED 14:28 → 3S 20:56 → SUATTDRO 20:56 → 3S 21:21
DX: F10.91 Alcohol use, unspecified, in remission; R45.851 Suicidal ideations; F31.81 Bipolar II disorder; Z81.8 Family history of other mental and behavioral disorders; F41.1 Generalized anxiety disorder